=== PATIENT | male | born 1950 | race Caucasian/White ===

== ENCOUNTER 2023-08-15 13:32 | Outpatient (AMB) | payer MEDICARE, OTHER, SELFPAY ==
--- NOTE | 2023-08-15 13:33 | A.OFFVIS_ITS ---
Intake Visit Reasons: Elevated PSA Intake Note: NEW Patient presents today to established treatment for Elevated PSA: Meds- None Allergies to Antibiotic- No Known Allergies Blood Thinner- None Quarrying Manager Required: No Accompanied by: Self / Same As Patient Allergies No Known Allergies Allergy (Verified 08/15/23 13:53) Medication List - Last Reconciled 08/15/23 by Randa Vences MD hydrochlorothiazide 25 mg PO DAILY lisinopril 40 mg PO DAILY rosuvastatin 40 mg PO DAILY HPI Comments Details: Bang is a 72-year-old male who is here for evaluation due to elevated PSA and bilateral testicular hydroceles. He states he was followed by urologist up until about 5 years ago for elevated PSA. About 15 years ago he had a prostate biopsy done because his PSA went up to 7. He has had annual checks with the urologist until the urologist moved approximately 5 years ago and his PSAs have been in the 4 range. He denies any urinary symptoms. Nocturia x1. AUA symptom score 2/35. Examination: Scrotum-no significant swelling right desean scrotum mildly enlarged, nontender. KENIA-prostate moderately enlarged smooth. 06/10/2023 PSA--4.71. Discussed options regarding aspiration of hydrocele fluid, surgical excision of fluid and hydrocele membrane, observation. He is currently asymptomatic. Plan is follow-up in 1 year with PSA screening he will call to be seen sooner for bothersome symptoms. [facility] Medical History Elevated prostate specific antigen [PSA] HTN (hypertension) Surgical History Hx of prostate biopsy Hx of tooth extraction Hx of colonoscopy History of bilateral inguinal herniorrhaphies Social History Alcohol intake: current Alcohol intake frequency: does not drink Patient Tobacco Use Status: Former Tobacco user Review of Systems Const All systems reviewed & are unremarkable except as noted in HPI and below Reports no additional complaints Eyes Reports no additional complaints ENT Reports no additional complaints Card Reports no additional complaints Resp Reports no additional complaints GI Reports no additional complaints Reports as per HPI Musc Reports no additional complaints Skin/Breast Reports system reviewed and no additional complaints, except as documented Neuro Reports no additional complaints Psych Reports no additional complaints Endo Reports no additional complaints Tito/Lymph Reports no additional complaints Aller/Immun Reports no additional complaints Physical Exam Const General: healthy appearing, no acute distress and well developed Orientation/consciousness: patient oriented x3 HEENT Head: Yes normocephalic and Yes atraumatic Eyes Conjunctivae: conjunctivae normal Neck Neck: Yes normal visual inspection Chest Chest palpation & inspection: normal inspection of the chest Resp Effort & Inspection: normal respiratory effort Cardio Rate: regular rate GI Inspection: Yes normal to inspection Palpation (GI): Soft to palpation Other: Prostate Exam: Moderately enlarged, smooth Testes, bilateral nontender Penis: normal penis Skin General skin exam: no rashes or lesions noted Neuro General: patient oriented x3 Extrem General: No pedal edema Psych Appearance: grossly normal Affect: normal affect Results AMB Urinalysis, Automated UA Leukoctes 0 Michela/uL Last Edit by DM Guzman on 08/15/23 13:55 UA Nitrite Negative Last Edit by DM Guzman on 08/15/23 13:55 UA Urobilinogen 0.2 mg/dL Last Edit by DM Guzman on 08/15/23 13:5 5 UA Protein 0 mg/dL Last Edit by DM Guzman on 08/15/23 13:55 UA pH 7.0 Last Edit by DM Guzman on 08/15/23 13:55 UA Blood 0 René/uL Last Edit by DM Guzman on 08/15/23 13:55 UA Specific [place] 1.010 Last Edit by DM Guzman on 08/15/23 13: 55 UA Ketone Negative Last Edit by DM Guzman on 08/15/23 13:55 UA Bilirubin 0 mg/dL Last Edit by DM Guzman on 08/15/23 13:55 UA Glucose 0 mg/dL Last Edit by DM Guzman on 08/15/23 13:55 Quality Reporting (2019) Benign Prostatic Hyperplasia ([facility] 771) AUA symptom score: 2 Results Reviewed Results Reviewed: Laboratory Last Values Urine pH (Auto) 7.0 08/15/23 13:53 Specific [place] (Auto) 1.010 08/15/23 13:53 Urine Protein (Auto) 0 mg/dL 08/15/23 13:53 Glucose (UA)(Auto) 0 mg/dL 08/15/23 13:53 Urine Ketones (Auto) Negative 08/15/23 13:53 Urine Blood (Auto) 0 René/uL 08/15/23 13:53 Urine Nitrite (Auto) Negative 08/15/23 13:53 Urine Bilirubin (Auto) 0 mg/dL 08/15/23 13:53 Urine Urobilinogen (Auto) 0.2 mg/dL 08/15/23 13:53 Leukocyte Esterase (Auto) 0 Michela/uL 08/15/23 13:53 Ultrasound scrotum-06/21/2023 Report reviewed no intratesticular mass visualized in either the right or left testicle. No evidence of torsion or acute abnormality. Bilateral hydroceles right hydrocele with septations greater than left. PSA 06/10/2023--4.71 ng/mL Assessment & Plan Assessment & Plan (1) Bilateral hydrocele: Code(s): N43.3 - Hydrocele, unspecified Category: Medical (2) BPH with elevated PSA: Code(s): N40.0 - Benign prostatic hyperplasia without lower urinary tract symptoms; R97.20 - Elevated prostate specific antigen [PSA] Category: Medical (3) Screening PSA (prostate specific antigen): Code(s): Z12.5 - Encounter for screening for malignant neoplasm of prostate Category: Medical Plan follow-up in 1 year with PSA screening he will call to be seen sooner for bothersome symptoms. Orders: Orders AMB Urinalysis Automated 08/15/23 Z13.9 - Encounter for screening, unspecified PSA,Total (Free>4and<10) 10 Months N40.0 - Benign prostatic hyperplasia without lower urinary tract symptoms, R97.20 - Elevated prostate specific antigen [PSA], Z12.5 - Encounter for screening for malignant neoplasm of prostate Patient Instructions: The patient had an opportunity to ask questions regarding treatment plan. The patient expressed understanding and agreement with the above treatment plan. The patient is aware they should contact our office by phone for worsening of their current condition or the appearance of new symptoms. Compliance is encouraged with any medications and followup testing that is ordered. It is a privilege to be allowed the opportunity to participate in the urologic care of your patient. If you have any questions or concerns regarding treatment for the above conditions please do not hesitate to contact me. The office telephone contact is [phone]. This note is constructed in part using voice recognition software. While every effort has been made to ensure accuracy cigar maker errors may have been included. Yours sincerely, Randa Vences MD Coding Level of Care Code New Pt Level 4 (21334) Diagnoses Bilateral hydrocele N43.3 BPH with elevated PSA N40.0; R97.20 Screening PSA (prostate specific antigen) Z12.5 AUA Symptom Score AUA Incomplete emptying - It does not feel like I empty my bladder all the way.: 0 - Not at all Frequency - I have to go again less than two hours after I finish urinating.: 0 - Not at all Intermittency - I stop and start again several times when I urinate.: 0 - Not at all Urgency - It is hard to wait when I have to urinate.: 1 - Less than 1 time in 5 Weak stream - I have a weak urinary stream.: 0 - Not at all Straining - I have to push or strain to begin urination.: 0 - Not at all Nocturia - I get up to urinate after I go to bed until the time I get up in the morning.: 1 time AUA Symptom Score: 2 Source: Long MEJIA, Raghu PRITCHETT Jr, O'Francitas MP, et al, and the Measurement Committee of the [employer]. The [place] [employer] symptom index for benign prostatic hyperplasia. J Urol. 1992; 148: 9872-9843. Copyright 1992 [employer]
== END 2023-08-15 14:23 | disposition home or self-care (01) ==
PROVIDERS: Visit Provider Urology
DX: N43.3 Hydrocele, unspecified (principal); N40.0 Benign prostatic hyperplasia without lower urinary tract symptoms; R97.20 Elevated prostate specific antigen [PSA]; Z12.5 Encounter for screening for malignant neoplasm of prostate
CPT/HCPCS: 99204

== ENCOUNTER → 2023-08-15 13:32 | Outpatient (BNVA) | payer MEDICARE, OTHER, SELFPAY | PROVIDERS: Visit Provider Urology | DX: Z12.5 Encounter for screening for malignant neoplasm of prostate (principal); N43.3 Hydrocele, unspecified; N40.0 Benign prostatic hyperplasia without lower urinary tract symptoms; R97.20 Elevated prostate specific antigen [PSA] | CPT/HCPCS: 81003; 99202 ==

== ENCOUNTER 2024-07-21 09:54 | Outpatient (REF) | payer MEDICARE, OTHER, SELFPAY ==
--- OUTSIDE RECORDS SUMMARY | 2024-07-21 11:10 | XMS_ITS | Encounter Summary ---
Author Organization [facility] Address [address] [place] [address] Phone Care Team Providers Care Costume Designer Name Role Phone Pcp, Unknown Primary Care Provider Reid Elaine MD Primary Care Provider [phone]- [phone] Encounter Details Date Type Department Care Team (Late st Contact Info) Description 08/05/2022 Procedure Pass [facility], Ct Scan - [address] [address] Social History Tobacco Use Types Packs/Day Years Used Date Smoking Tobacco: Former Cigarettes Smokeless Tobacco: Never Alcohol Use Standard Drinks/Week Comments Yes 14 (1 standard drink = 0.6 oz pu re alcohol) daily Education Answer Date Recorded Are you interested in more education? Not on dileep e 07/13/2022 Are you concerned about learning? Not on file 07/13/2022 No 07/13/2022 No 07/13/2022 Digital Access Answer Date Recorded No 08/07/2022 No 08/07/2022 No 08/07/2022 Reliable internet access at home? Not on file 08/07/2022 Device with a working camera? Not on file Intimate Partner Violence Answer Date R ecorded Are you denied basic needs s uch as food, clothing, or medical care? No 08/05/2022 In the past 12 months have y ou been in a relationship with a person who hurts, threatens, or tries to control you? No 08/05/2022 Are you denied basic needs s uch as food, clothing, or medical care? No 08/05/2022 In the past 12 months have y ou been in a relationship with a person who hurts, threatens, or tries to control you? No 08/05/2022 Sex and Gender Information Value Date Recorded Sex Assigned at Not on file Gender Identity Not on file Sexual Orientation Not on file documented as of this encounter Plan of Treatment Not on file documented as of this encounter Visit Diagnoses Not on filedocumented in this encounter Care Teams Costume Designer Relationship Specialty Start Date End Date Pcp, Unknown PCP - General 08/05/22 08/05/22 Reid Rodriguez MD [address] [place] [phone] [email or web address] PCP - General Internal Medicine 08/06/22 documented as of this encounter Additional Source Comments The information contained in this document represents components of the legal health record. It is not the complete legal health record.[facility]
--- OUTSIDE RECORDS SUMMARY | 2024-07-21 11:10 | XMS_ITS | Encounter Summary ---
Author Organization [facility] Address [address] [place] [address] Phone Care Team Providers Care Hat Braider Name Role Phone Pcp, Unknown Primary Care Provider Reid Elaine MD Primary Care Provider [phone]- [phone] Encounter Details Date Type Department Care Team (Late st Contact Info) Description 08/05/2022 Procedure Pass [facility], Ct Scan - [address] [address] Social History Tobacco Use Types Packs/Day Years [...] on filedocumented in this encounter Care Teams Hat Braider Relationship Specialty Start Date End Date Pcp, Unknown PCP - General 08/05/22 08/05/22 Reid Rodriguez MD [address] [place] [phone] [email or web address] PCP - General Internal Medicine 08/06/22 documented as of this encounter Additional Source Comments The information contained in this document represents components of the legal health record. It is not the complete legal health record.[facility]
--- OUTSIDE RECORDS SUMMARY | 2024-07-21 11:10 | XMS_ITS | Encounter Summary ---
Author Organization [facility] Address [address] [place] [address] Phone Care Team Providers Care Retail Sales Vitamin Consultant Name Role Phone Reid Rodriguez MD Primary Care Provider [phone]- [phone] Encounter Details Date Type Department Care Team (Late st Contact Info) Description 08/06/2022 Procedure Pass [facility] [address] [place] [address] Social History Tobacco Use Types Packs/Day Years [...] on filedocumented in this encounter Care Teams Retail Sales Vitamin Consultant Relationship Specialty Start Date End Date Reid Rodriguez MD [address] [place], [place] [id number] [email or web address] PCP - General Internal Medicine 08/06/22 documented as of this encounter Additional Source Comments The information contained in this document represents components of the legal health record. It is not the complete legal health record.[facility]
--- OUTSIDE RECORDS SUMMARY | 2024-07-21 11:10 | XMS_ITS | Encounter Summary ---
Author Organization [facility] Address [address] [place] [address] Phone Care Team Providers Care Book Author Name Role Phone Pcp, Unknown Primary Care Provider Reid Elaine MD Primary Care Provider [phone]- [phone] Encounter Details Date Type Department Care Team (Late st Contact Info) Description 08/05/2022 Procedure Pass [facility], [address] [address] Social History Tobacco Use Types Packs/Day Years [...] on filedocumented in this encounter Care Teams Book Author Relationship Specialty Start Date End Date Pcp, Unknown PCP - General 08/05/22 08/05/22 Reid Rodriguez MD [address] [place] [phone] [email or web address] PCP - General Internal Medicine 08/06/22 documented as of this encounter Additional Source Comments The information contained in this document represents components of the legal health record. It is not the complete legal health record.[facility]
--- OUTSIDE RECORDS SUMMARY | 2024-07-21 11:10 | XMS_ITS | Data Portability ---
Author Organization [facility], [facility] Address [address] [place] [address] Care Team Providers Care Pan Helper Name Role Phone GIFTY RODRIGUEZ Primary Care Provider [phone] JON ESCALANTE Cask Maker Assessment Encounter Date Assessment Date Assessment LastModified by Organization Details LastModified Time 11/16/2022 11/16/2022 We completed your Medicare Wellness exam today. This was an opportunity to assess your overall well being including your ability to care for yourself, your mobility, memory, mental health, as well as your safety. With advancing age, it is important to assign someone in your life as your Health Care Proxy (HCP). This person should know what is important to you and what your wishes are for medical procedures if you cannot communicate your wishes yourself (severe illness, unconsciousness) . Influenza Vaccine : Flu shot yearly. Tetanus Vaccine : Every 10 years. The following vaccines are available from your pharmacy: Pneumonia Vaccine : PCV20: once after age 65. Shingles Vaccine : 2 shots after age 50. Covid Vaccine : Make sure you have received the most up to date covid vaccine. 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 * outrigger [place] in [place] 10/2020 well enjoy [place] [employer] * 05/04/2020 had repair of retinal tear last week with Heladio Mullins 10/27/2019 former [facility] patient, first meet with RV had root canal yesterday and on amoxicillin Home BP 131/84 WT [address] 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 This was an opportunity to assess your overall well being including your ability to care for yourself, your mobility, memory, mental health, as well as your safety. With advancing age, it is important to assign someone in your life as your Health Care Proxy (HCP). This person should know what is important to you and what your wishes are for medical procedures if you cannot communicate your wishes yourself (severe illness, unconsciousness) . Influenza Vaccine : Flu shot yearly. Tetanus Vaccine : Every 10 years. 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 * out[place] in [place] 10/2020 well enjoy [facility]- * 05/04/2020 had repair of retinal tear last week with Heladio Mullins 10/27/2019 former [facility] patient, first meet with RV had root canal yesterday and on amoxicillin Home BP 131/84 WT [address] 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 Please review instructions below. We have discussed your personal goals and discussed how to reach your goals. Please reach out to us via the Portal or phone if you have questions about your chronic conditions or if you or your caregivers require assistance in meeting your goals. Please visit our website [email or web address] for more patient resources. As part of your care plan, we will help coordinate your ongoing medical needs, arrange for durable medical equipment, renew prescriptions and necessary prior authorizations, facilitate getting referrals and collaborating with specialist, referrals for VNA services. [email or web address] Not available 06/29/2024 08:25:40 Plan of Treatment Reminders Order Date Submit Date Provider Last Modified By Organization Details Last Modified Time Details Appointments LAB Follow -Up 2024 07:30A M [facility] Not available Not available Not available Wellne ss Visit 30 2024 08:30A M Gifty Rodriguez MD Not available Not available Not available Lab PSA, serum or plasma 2024 025 [facility], [address] [facility], [place], [address], 06/29/2024 08:45:55 Referral None record ed. Procedures holter monito r placem ent (PROC) - TIA observ ed overni ght at [facility] 08/05-04/2022 . 30 day r.o afib 2022 023 [facility], [address], [place], [address], 12/21/2022 10:41:23 Surgeries None record ed. Imaging US, scrotu m [address] [facility] (Imaging), [address] , [place], [address], 06/21/2023 09:42:15 Medication Orders hydroc hlorot hiazid e 25 mg tablet 2022 023 [facility], [facility], [place], [address], 11/16/2022 11:55:42 lisino pril 40 mg tablet 2022 023 [facility], [place], [address], 11/16/2022 11:55:42 clopid ogrel 75 mg tablet 2022 023 [email or web address] [facility], [facility], [place], [address], 11/16/2022 11:17:01 atorva statin 80 mg tablet 2022 023 [email or web address] [facility], [facility], [place], [address], 11/16/2022 11:16:58 Patient TargetsNo targets recorded. Patient Instructions Encounter Date Encounter Id Patient Instructions Last Modified By Organization Details Last Modified Time 08/20/2022 [id number] I am aware of e inpatient facility discharge medications, the medication list above has been reconciled with those medications and reflects my understanding of an up to date medication list for this patient. [email or web address] Not available 08/20/2022 09:43:00 11/16/2022 [id number] high blood pressure: care instructions rvigderman Not available 11/16/2022 11:55:40 learning about high blood pressure rvigderman Not available 11/16/2022 11:55:40 preventing falls : care instructions rvigderman Not available 11/16/2022 11:55:40 hearing loss information rvigderman Not available 11/16/2022 11:55:40 advance directives: care instructions rvigderman Not available 11/16/2022 11:55:40 well visit, over 65: care instructions rvigderman Not available 11/16/2022 11:55:40 Prostate Cancer Screening was discussed. The U.S. Preventive Services Task Force advises not to make a PSA test a part of the standard exam for men ages 55-69. Instead they recommend the uncertainties about the test be discussed and ordered only if a patient still wants it. Over their lifetimes as many as 50% or more of men will develop prostate cancer but only 2% of men will of prostate cancer. For men who chose to be screened for prostate cancer if 1000 men are screened with a psa test over a 15 year period there might be 1-2 deaths prevented however 235 men will have a biopsy with risk of infection, bleeding and Pain, 100 men will have their prostate removed by surgery or radiation treatments and 60-70 of those will suffer incontinence or impotence. There is also the risk of anesthesia or radiation complications. For men over 70 prostate cancer screening offered no benefit and risked pain, worry, expense and possibly shorter life expectancy. [email or web address] Not available 11/16/2022 11:12:10 11/25/2023 [id number] preventing falls : care instructions [email or web address] Not available 11/25/2023 09:24:08 hearing loss information rvigderman Not available 11/25/2023 09:24:08 advance directives: care instructions rvigderman Not available 11/25/2023 09:24:08 well visit, over 65: care instructions rvigderman Not available 11/25/2023 09:24:08 CCM: The provide r and patient discussed the Chronic Care Management program, including the services provided, and any fees associated with them. Not available 11/25/2023 08:45:15 06/29/2024 [id number] high blood pressure: care instructions [email or web address] Not available 06/29/2024 08:45:55 learning about [facility] blood [facility] Not available 06/29/2024 08:45:55 Reason for Referral None Reported. Results Created Date Observation Date Name Description Value Unit Range Abnormal Flag Note LastModifiedBy Organization Detail LastModifiedTime 11/08/1911/07/2022 PSA PSA 4.74 NG/mL 0.00-4 .00 high Not Available [address], [address], 11/07/2022 12:16:32 11/08/1911/07/2022 LIPID PANEL cholesterol 135 mg/dL <200 mg/dl Tung able 200-2 39 mg/dl Borde rline High >240 mg/dl High Not Available [address], [address], 11/07/2022 16:23:00 11/08/1911/07/2022 LIPID PANEL triglyceride s 117 mg/dL <150 mg/dL Heather l 150-1 99 mg/dL Borde rline High 200-4 99 mg/dL High >500 mg/dL Very High Not Available [address], [address], 11/07/2022 16:23:00 11/08/1911/07/2022 LIPID PANEL direct HDL 58 mg/dL <40 mg/dl - Major Risk for CHD >60 mg/dl - Negat denzel Risk for CHD Not Available [address], [address], 11/07/2022 16:23:00 11/08/19 23 11/07/2022 ALT ALT 56 U/L 6-63 Not Available [address], [address], 11/07/2022 16:23:01 11/08/1911/07/2022 LDL - CALCU LATED LDL - calculated 53.6 RISK CATEG ORY LDL GOAL _ CHD or CHD Risk Equiv alent s <100 mg/dl (10-y ear risk >20%) 2+ Risk Facto rs <130 mg/dl (10-y ear risk <= 20%) 0-1 Risk Facto r? <160 mg/dl ? Almos t all peopl e with 0-1 risk facto r have a 10 year risk <10%, thus 10 year risk asses ment in peopl e with 0-1 risk facto r is not neces estefani. Not Available [address], [address], 11/07/2022 16:23:02 12/18/19 23 12/18/2022 ANATO NESTOR PATHO LOGY path report [facility] [address] [place] [address] Lab Direc tor: Regina jose MD Surgi elmira Patho logy Repor t Acces osvaldo #: [id number] FINAL PATHO LOGIC DIAGN OSIS: A. COLON POLYP AT HEPAT IC FLEXU RE: Adeno matou s polyp . B. SIGMO ID COLON , POLYP : Hyper plast ic polyp . Rosaura issaon pankaj joseph Lenore d Out By Mandeep frias MD By his/h er signayan laureano above , the patho logis t gifty d as stef junior the Final Diagn osis certi fies that he/sh e has perso fazal revie wed this case and confi rmed or fanny cerond the diagn osis. [facility] RY Scree marcell colon oscop y, last colon oscop y 6 SPECI MENS SUBMI TTED: A: COLON AT HEPAT IC FLEXU RE, POLYP B: SIGMO ID COLON , POLYP GROSS DESCR IPTIO N A. COLON AT HEPAT IC FLEXU RE, POLYP : Forma roseline: 2 fragm ents 0.2 cm each, entir shivam submi tted A1. B. SIGMO ID COLON , POLYP : Forma roseline: 1 fragm ent 0.2 cm, entir shivam submi tted B1. DN 2022 Gross ing Staff : MAHI patel Name: VICKY PAIZ AM : 1950 (Age: 72) Sex: M 1 Insti tutio n: [facility] Locat ion: [facility] Date of Opera tion: 2022 Date of Acces osvaldo: 2022 Repor mamadou: 2022 15:04 Resul ts To: Nader lenz MD, AB Traivs brush MD, POST- BA, BA [facility] Speci altie s Not Available [facility] (Outpatient) [address] [place] [address], [address], 12/18/2022 15:38:59 06/10/19 24 06/10/2023 BASIC METAB OLIC PANEL glucose 91 mg/dL 70-100 Not Available [address], [address], 06/10/2023 11:08:19 06/10/19 24 06/10/2023 BASIC METAB OLIC PANEL BUN 15 mg/dL 7-18 Not Available [address], [address], 06/10/2023 11:08:19 06/10/19 24 06/10/2023 BASIC METAB OLIC PANEL creatinine 1.0 mg/dL 0.8-1. 3 Not Available [address], [address], 06/10/2023 11:08:19 06/10/19 24 06/10/2023 BASIC METAB OLIC PANEL B/C 15.0 ratio Not Available [address], [address], 06/10/2023 11:08:19 06/10/19 24 06/10/2023 BASIC METAB OLIC PANEL GFR >=60ML /MIN mL/mi n normal >=60m L/min - Heather l or midly reduc ed <60mL /min- Decre ased kidne y funct ion <15mL /min - Kidne y failu re [facility] calcu lates estim ated Glome rular Filtr ation Rate (eGFR ) using the Chron ic Kidne y Disea se Epide miolo gy Colla borat ion (CKD- EPI) Equat ion (Paramjit durham et. al 2020) as recom vance d by the Natio nal Kidne y Found ation . eGFR is based on age, serum creat inine , and sex. CKD-E PI does not calcu late eGFR by race, does not apply to child neftali (age <18 years ), and shoul d not be used in pregn julian. Not Available [address], [address], 06/10/2023 11:08:19 06/10/19 24 06/10/2023 BASIC METAB OLIC PANEL sodium 143 mmol/ L 136-14 5 Not Available [address], [address], 06/10/2023 11:08:19 06/10/19 24 06/10/2023 BASIC METAB OLIC PANEL potassium 4.8 mmol/ L 3.5-5. 1 Not Available [address], [address], 06/10/2023 11:08:19 06/10/19 24 06/10/2023 BASIC METAB OLIC PANEL chloride 105 mmol/ L 96-107 Not Available [address], [address], 06/10/2023 11:08:19 06/10/19 24 06/10/2023 BASIC METAB OLIC PANEL anion gap 8.1 5.0-15 .0 Not Available [address], [address], 06/10/2023 11:08:19 06/10/19 24 06/10/2023 BASIC METAB OLIC PANEL CO2 30 mmol/ L 21-32 Not Available [address], [address], 06/10/2023 11:08:19 06/10/19 24 06/10/2023 BASIC METAB OLIC PANEL calcium 9.3 mg/dL 8.5-10 .3 Not Available [address], [address], 06/10/2023 11:08:19 06/10/19 24 06/10/2023 LIPID PANEL cholesterol 129 mg/dL <200 mg/dl Tung able 200-2 39 mg/dl Borde rline High >240 mg/dl High Not Available [address], [address], 06/10/2023 11:08:20 06/10/19 24 06/10/2023 LIPID PANEL triglyceride s 54 mg/dL <150 mg/dL Heather l 150-1 99 mg/dL Borde rline High 200-4 99 mg/dL High >500 mg/dL Very High Not Available [address], [address], 06/10/2023 11:08:20 06/10/19 24 06/10/2023 LIPID PANEL direct HDL 66 mg/dL <40 mg/dl - Major Risk for CHD >60 mg/dl - Negat denzel Risk for CHD Not Available [address], [address], 06/10/2023 11:08:20 06/10/19 24 06/10/2023 LDL - CALCU LATED LDL - calculated 52.2 RISK CATEG ORY LDL GOAL _ CHD or CHD Risk Equiv alent s <100 mg/dl (10-y ear risk >20%) 2+ Risk Facto rs <130 mg/dl (10-y ear risk <= 20%) 0-1 Risk Facto r? <160 mg/dl ? Almos t all peopl e with 0-1 risk facto r have a 10 year risk <10%, thus 10 year risk asses ment in peopl e with 0-1 risk facto r is not terry jara. Not Available [address], [address], 06/10/2023 11:08:21 06/10/19 24 06/10/2023 PSA PSA 4.71 NG/mL 0.00-4 .00 high Not Available [address], [address], 06/10/2023 15:30:37 11/11/19 24 11/11/2023 BASIC METAB OLIC PANEL glucose 83 mg/dL 70-100 Not Available [address], [address], 11/11/2023 14:14:54 11/11/19 24 11/11/2023 BASIC METAB OLIC PANEL BUN 11 mg/dL 7-18 Not Available [address], [address], 11/11/2023 14:14:54 11/11/19 24 11/11/2023 BASIC METAB OLIC PANEL creatinine 0.9 mg/dL 0.8-1. 3 Not Available [address], [address], 11/11/2023 14:14:54 11/11/19 11/11/2023 BASIC METAB OLIC PANEL B/C 12.2 ratio Not Available [address], [address], 11/11/2023 14:14:54 11/11/19 24 11/11/2023 BASIC METAB OLIC PANEL GFR >=60ML /MIN mL/mi n normal >=60m L/min - Heather l or midly reduc ed <60mL /min- Decre ased kidne y funct ion <15mL /min - Kidne y failu re [facility] calcu lates estim ated Glome rular Filtr ation Rate (eGFR ) using the Chron ic Kidne y Disea se Epide miolo gy Colla borat ion (CKD- EPI) Equat ion (Paramjit durham et. al 2020) as recom vance d by the Natio nal Kidne y Found ation . eGFR is based on age, serum creat inine , and sex. CKD-E PI does not calcu late eGFR by race, does not apply to child neftali (age <18 years ), and shoul d not be used in pregn julian. Not Available [address], [address], 11/11/2023 14:14:54 11/11/1911/11/2023 BASIC METAB OLIC PANEL sodium 140 mmol/ L 136-14 5 Not Available [address], [address], 11/11/2023 14:14:54 11/11/1911/11/2023 BASIC METAB OLIC PANEL potassium 4.2 mmol/ L 3.5-5. 1 Not Available [address], [address], 11/11/2023 14:14:54 11/11/19 24 11/11/2023 BASIC METAB OLIC PANEL chloride 103 mmol/ L 96-107 Not Available [address], [address], 11/11/2023 14:14:54 11/11/19 24 11/11/2023 BASIC METAB OLIC PANEL anion gap 11.0 5.0-15 .0 Not Available [address], [address], 11/11/2023 14:14:54 11/11/19 24 11/11/2023 BASIC METAB OLIC PANEL CO2 26 mmol/ L 21-32 Not Available [address], [address], 11/11/2023 14:14:54 11/11/19 24 11/11/2023 BASIC METAB OLIC PANEL calcium 9.1 mg/dL 8.5-10 .3 Not Available [address], [address], 11/11/2023 14:14:54 11/11/19 24 11/11/2023 LIPID PANEL cholesterol 123 mg/dL <200 mg/dl Tung able 200-2 39 mg/dl Borde rline High >240 mg/dl High Not Available [address], [address], 11/11/2023 14:14:55 11/11/19 24 11/11/2023 LIPID PANEL triglyceride s 113 mg/dL <150 mg/dL Heather l 150-1 99 mg/dL Borde rline High 200-4 99 mg/dL High >500 mg/dL Very High Not Available [address], [address], 11/11/2023 14:14:55 11/11/1911/11/2023 LIPID PANEL direct HDL 58 mg/dL <40 mg/dl - Major Risk for CHD >60 mg/dl - Negat denzel Risk for CHD Not Available [address], [address], 11/11/2023 14:14:55 11/11/19 24 11/11/2023 LDL - CALCU LATED LDL - calculated 42 RISK CATEG ORY LDL GOAL _ CHD or CHD Risk Equiv alent s <100 mg/dl (10-y ear risk >20%) 2+ Risk Facto rs <130 mg/dl (10-y ear risk <= 20%) 0-1 Risk Facto r? <160 mg/dl ? Almos t all peopl e with 0-1 risk facto r have a 10 year risk <10%, thus 10 year risk asses ment in peopl e with 0-1 risk facto r is not terry jara. Not Available [address], [address], 11/11/2023 14:14:55 06/24/19 25 06/23/2024 BASIC METAB OLIC PANEL glucose 85 mg/dL 70-100 Not Available [address], [address], 06/23/2024 15:19:08 06/24/19 25 06/23/2024 BASIC METAB OLIC PANEL BUN 14 mg/dL 7-18 Not Available [address], [address], 06/23/2024 15:19:08 06/24/19 25 06/23/2024 BASIC METAB OLIC PANEL creatinine 1.0 mg/dL 0.8-1. 3 Not Available [address], [address], 06/23/2024 15:19:08 06/24/19 25 06/23/2024 BASIC METAB OLIC PANEL B/C 14.0 ratio Not Available [address], [address], 06/23/2024 15:19:08 06/24/19 25 06/23/2024 BASIC METAB OLIC PANEL GFR >=60ML /MIN mL/mi n normal >=60m L/min - Heather l or midly reduc ed <60mL /min- Decre ased kidne y funct ion <15mL /min - Kidne y failu re [facility] calcu lates estim ated Glome rular Filtr ation Rate (eGFR ) using the Chron ic Kidne y Disea se Epide miolo gy Colla borat ion (CKD- EPI) Equat ion (Paramjit durham et. al 2020) as recom vance d by the Natio nal Kidne y Found ation . eGFR is based on age, serum creat inine , and sex. CKD-E PI does not calcu late eGFR by race, does not apply to child neftali (age <18 years ), and shoul d not be used in pregn julian. Not Available [address], [address], 06/23/2024 15:19:08 06/24/19 25 06/23/2024 BASIC METAB OLIC PANEL sodium 144 mmol/ L 136-14 5 Not Available [address], [address], 06/23/2024 15:19:08 06/24/19 25 06/23/2024 BASIC METAB OLIC PANEL potassium 4.5 mmol/ L 3.5-5. 1 Not Available [address], [address], 06/23/2024 15:19:08 06/24/19 25 06/23/2024 BASIC METAB OLIC PANEL chloride 106 mmol/ L 96-107 Not Available [address], [address], 06/23/2024 15:19:08 06/24/19 25 06/23/2024 BASIC METAB OLIC PANEL anion gap 12.5 5.0-15 .0 Not Available [address], [address], 06/23/2024 15:19:08 06/24/19 25 06/23/2024 BASIC METAB OLIC PANEL CO2 26 mmol/ L 21-32 Not Available [address], [address], 06/23/2024 15:19:08 06/24/19 25 06/23/2024 BASIC METAB OLIC PANEL calcium 9.6 mg/dL 8.5-10 .3 Not Available [address], [address], 06/23/2024 15:19:08 06/24/19 25 06/23/2024 LIPID PANEL cholesterol 138 mg/dL <200 mg/dl Tung able 200-2 39 mg/dl Borde rline High >240 mg/dl High Not Available [address], [address], 06/23/2024 15:19:09 06/24/19 25 06/23/2024 LIPID PANEL triglyceride s 124 mg/dL <150 mg/dL Heather l 150-1 99 mg/dL Borde rline High 200-4 99 mg/dL High >500 mg/dL Very High Not Available [address], [address], 06/23/2024 15:19:09 06/24/19 25 06/23/2024 LIPID PANEL direct HDL 71 mg/dL <40 mg/dl - Major Risk for CHD >60 mg/dl - Negat denzel Risk for CHD Not Available [address], [address], 06/23/2024 15:19:09 06/24/19 25 06/23/2024 LDL - CALCU LATED LDL - calculated 42 RISK CATEG ORY LDL GOAL _ CHD or CHD Risk Equiv alent s <100 mg/dl (10-y ear risk >20%) 2+ Risk Facto rs <130 mg/dl (10-y ear risk <= 20%) 0-1 Risk Facto r? <160 mg/dl ? Almos t all peopl e with 0-1 risk facto r have a 10 year risk <10%, thus 10 year risk asses ment in peopl e with 0-1 risk facto r is not neces estefani. Not Available [facility] [address] [facility], [place], [address], 06/23/2024 15:19:10 12/22/19 23 09/03/2022 rianna r monit or place ment (PROC ) No observ ation record ed. [facility] [address], [place], [address], 12/21/2022 15:17:49 06/21/19 24 06/21/2023 US, scrot um CLINIC AL HISTOR Y: Acute orchit is TECHNI QUE: The scrotu m is evalua mamadou with 2d sonogr aphy includ ing color and spectr al Dopple r of the arteri es and veins of the testic les. COMPAR TOM: None. FINDIN GS: RIGHT TESTIC LE: 3.3 x 2.7 x 5.1 cm No intrat esticu lar mass is visual ized. Vascul ar flow to the testic le is normal . There appear s to be cystic change of the epidid ymis. It is unclea r how much of this is separa te from cystic change of the adjace nt hydroc rosaura. There is a large right hydroc rosaura with septat ions. LEFT TESTIC LE: 3.1 x 3.0 x 4.6 cm No intrat esticu lar mass is visual ized. Vascul ar flow to the testic le is normal . The epidid ymis is unrema rkable . There appear s to be cystic change of the epidid ymis. It is unclea r how much of this is separa te from cystic change of the adjace nt hydroc rosaura. There is a large left hydroc rosaura. There is no varico mark anthony. IMPRES OSVALDO: 1. No eviden ce of torsio n or other acute abnorm ality. 2. Bilate ral hydroc eles and the parent epidid ymal cysts though deline ation is diffic ult. Readin g Physic lillian: Ceci Tucker ms [facility] ([facility]) [address], [place], [address], 11/25/2023 08:55:41 Result Notes None recorded. Problems Name Problem SNOMED Code Status Onset Date Resolution Date Notes Provider Name and Address Organization Details Recorded Time Nonvenomous insect bite of multiple sites 916955066 Completed 200607/30/2011 [place], [address], [facility] 08:23:13 Essential hypertensio n 34993938 Completed 11/04/2014 [place], [address], [facility] [place] [facility] 08:23:13 On examination - a rash Completed 200207/30/2011 [place], [address], [facility] [place] [facility] 08:23:13 Subcutaneou s nodule 60297554 Completed 200707/30/2011 [place], [address], [facility] [place] [facility] 08:23:13 Pain of shoulder region 85603672 Completed 200007/30/2011 [place], [address], [facility] [place] [facility] 08:23:13 Prostate specific antigen above reference range 421012256 Active 2005 MD [place], [address], [facility] [place] [facility] 08:23:13 Elevated blood-press ure reading without diagnosis of hypertensio n 499912992 Completed 200207/30/2011 [place], [address], [facility] [place] [facility] 08:23:13 Benign essential hypertensio n 7456925 Active 2000 Asiya Kennedy [facility] 6 13:30:07 Nocturia 362763356 Completed 200507/30/2011 Zack Villegas MD [facility] [place], [address], [facility] [place] [facility] 08:23:13 Malaise and fatigue 982595251 Completed 200307/30/2011 Zack Villegas MD [facility] [place], [address], [facility] [place] [facility] 08:23:13 Benign prostatic hyperplasia 418324794 Completed 200707/30/2011 Zack Villegas MD [facility] [place], [address], [facility] [place] [facility] 08:23:13 Shoulder stiff 889333438 Completed 200007/30/2011 Zack Villegas MD [facility] [place], [address], [facility] [place] [facility] 08:23:13 Cystic fibrosis 997868245 Completed 200207/30/2011 Zack Villegas MD [facility] [place], [address], [facility] [place] [facility] 08:23:13 Mixed hyperlipide alesia 044968287 Active 2024 Gifty Rodriguez MD [facility] [place], [address], [facility] 5 08:47:20 Problem Notes None recorded. Procedures Surgical History Date Name Laterality Status Provider Name and Address Organization Details Recorded Time 11/25/19 24 Medicare Wellness Visit completed Nuris Barraza [facility] 11/25/2023 08:44:41 11/17/19 23 Medicare Wellness Visit completed Nuris Barraza [facility] 11/16/2022 11:12:11 08/21/19 23 Post hospital/SNF follow-up/Transiti onal Care completed MD Angel Bauman [facility] [place], [phone], [facility] 08/20/2022 09:43:00 11/03/19 21 Medicare Wellness Visit completed Nuris Barraza [facility] 11/02/2020 08:33:40 11/03/19 21 prevention-cardiov ascular risk reduction counseling completed Nuris Barraza [facility] 11/02/2020 08:33:40 11/03/19 21 prevention-annual alcohol misuse screening completed Nuris Barraza [facility] 11/02/2020 08:33:40 12/21/19 18 Medicare Wellness Visit completed Warren García [facility] 12/20/2017 09:32:30 12/01/19 17 Medicare Wellness Visit completed Laura Robertson LPN [facility] 11/30/2016 08:44:04 11/28/19 16 Medicare Wellness Visit completed Laura Robertson LPN [facility] 11/28/2015 11:32:15 09/23/19 16 Johnnie - Colonoscopy completed Nader Blair MD [address] [place] [address], [phone], [facility] 09/23/2015 08:32:08 09/23/19 16 Colonoscopy completed Zack Villegas MD [address] [place] [address], [phone], [facility] 09/23/2015 17:21:20 06/08/19 11 Colonoscopy completed Zack Villegas MD [address] [place] [address], [phone], [facility] 11/03/2013 08:49:51 12/22/19 09 Corticosteroid Injection completed Zack Villegas MD [address] [place] [address], [phone], [facility] 12/21/2008 08:49:42 08/11/19 09 Treatment and Advice completed Minnie Wray OT [address] [place], [phone], [facility] 08/10/2008 09:02:33 05/03/19 06 completed Not Available [facility] 02/01/2011 06:05:52 Imaging Results Imaging Date Name Status LastModified by [facility] Details LastModified Time 09/03/2022 holter monitor placement (PROC) completed [facility] [address], [place], [address], 12/21/2022 15:17:49 06/21/2023 US, [facility]um [facility] [address] , [place], [address], 11/25/2023 08:55:41 Procedure Notes None recorded. Medical Equipment None Reported. Allergies Allergen ID Allergen Name Allergen Category Reaction Reaction Severity Criticality Documentation Date Start Date Code Code System Note Provider Name and Address Organization Details Recorded Time 278335 amlodipin e medicatio n swelling mild Not available 11/25/2023 02235 RxNorm JUNE Vasquez, [place] - [facility] 08:47:02 Medications Name Sig Start Date Stop Date Status Note LastModified by Organization Details LastModified Time amoxicilli n 500 mg capsule 05/04 completed Not Available Not Available Not Available atorvastat in 80 mg tablet Take 1 tablet every day by oral route. 11/16 completed Not Available Not Available Not Available lisinopril 20 mg tablet Take 1 tablet every day by oral route. 2008 active 1 daily Not Available Not Available Not Available amlodipine 2.5 mg tablet TAKE 1 TABLET BY MOUTH EVERY DAY 06/03 completed Not Available Not Available Not Available clopidogre l 75 mg tablet Take 1 tablet every day by oral route for 7 days. 11/16 completed Not Available Not Available Not Available amlodipine 5 mg tablet Take 1 tablet every day by oral route. 11/02 completed Not Available Not Available Not Available doxycyclin e monohydrat e 100 mg tablet TAKE 1 TABLET(S) TWICE A DAY BY ORAL ROUTE FOR 28 DAYS. 11/27 completed Not Available Not Available Not Available ketorolac 0.5 % eye drops INSTILL 1 DROP IN RIGHT EYE THREE TIMES A DAY FOR 3 WEEKS FOLLOWING SURGERY 2 11/06 completed Not Available Not Available Not Available prednisolo ne acetate 1 % eye drops,susp ension INSTILL 1 DROP IN LEFT EYE THREE TIMES A DAY FOR 3 WEEKS FOLLOWING SURGERY 2 SHAKE WELL 11/06 completed Not Available Not Available Not Available amlodipine 10 mg tablet Take 1 tablet every day by oral route. 11/02 completed Not Available Not Available Not Available doxycyclin e monohydrat e 100 mg capsule Take 2 CAPSULEs for one dose 2024 active Not Available Not Available Not Avai lable aspirin 81 mg chewable tablet TAKE 1 TABLET BY MOUTH EVERY DAY active Not Available Not Available No t Available lisinopril 5 mg tablet active Take 1 tab QD ( with 20mg tab) Not Available Not Available Not Available hydrochlor othiazide 25 mg tablet TAKE 1 TABLET DAILY active Not Available Not Available No t Available lisinopril 40 mg tablet TAKE 1 TABLET DAILY active Not Available Not Available No t Available Laxative (bisacodyl ) 5 mg tablet,del ayed release TAKE 4 TABLETS ORALLY DIRECTED 1 DAY 08/20 completed Not Available Not Available Not Available rosuvastat in 20 mg tablet Take 1 tablet every day by oral route. active Not Available Not Available No t Available rosuvastat in 40 mg tablet TAKE 1 TABLET BY MOUTH EVERY DAY 11/24 completed Not Available Not Available Not Available multivitam in active 1 daily Not Available Not Available Not Available GaviLyte-G 236 gram-22.74 gram-6.74 gram-5.86 gram oral solution USE ORALLY DIRECTED 1 DAYS 08/20 completed Not Available Not Available Not Available [facility] 10 billion cell-200 mg chewable tablet Take 1 tablet twice a day by oral route for 28 days. 11/27 completed Not Available Not Available Not Available Flowflex COVID-19 Antigen Home Test kit REFER TO BRENDA STEVE ONS INCLUDED IN PACKAGING 11/06 completed Not Available Not Available Not Available Vitals Date Recorded Body height Body mass index (BMI) Body weight Systolic blood pressure Diastolic blood pressure Provider Name and Address Organization Details Last Updated DateTime 08/20/2022 183.52 cm 29.4 kg/m2 58523.14 g 138 mm[Hg] 74 mm[Hg] Nuris Barraza [facility] 3 09:00:37 Date Recorded Body height Body mass index (BMI) Body weight Heart rate Oxygen saturation Oxygen saturation in Arterial blood by Pulse oximetry Systolic blood pressure Diastolic blood pressure Provider Name and Address Organization Details Last Updated DateTime 3 183.52 cm 29.3 kg/m2 69145.3 4 g 53 /min 98 % 98 % 126 mm[Hg] 78 mm[Hg] Nuris Barraza [facility] 3 11:20:39 Date Recorded Body height Body mass index (BMI) Body weight Oxygen saturation Oxygen saturation in Arterial blood by Pulse oximetry Heart rate Systolic blood pressure Diastolic blood pressure Provider Name and Address Organization Details Last Updated DateTime 4 183.52 cm 28.9 kg/m2 93509.1 7 g 98 % 98 % 58 /min 118 mm[Hg] 74 mm[Hg] Nuris Barraza [facility] 4 12:05:31 Date Recorded Body height Body mass index (BMI) Body weight Oxygen saturation Oxygen saturation in Arterial blood by Pulse oximetry Heart rate Systolic blood pressure Diastolic blood pressure Provider Name and Address Organization Details Last Updated DateTime 4 183.52 cm 29 kg/m2 93772.4 6 g 100 % 100 % 69 /min 118 mm[Hg] 76 mm[Hg] Nuris Barraza [facility] 4 08:52:18 Date Recorded Body height Body mass index (BMI) Body weight Heart rate Oxygen saturation Oxygen saturation in Arterial blood by Pulse oximetry Systolic blood pressure Diastolic blood pressure Provider Name and Address Organization Details Last Updated DateTime 5 183.52 cm 28.8 kg/m2 53309.9 7 g 54 /min 100 % 100 % 142 mm[Hg] 84 mm[Hg] Nuris Barraza [facility] 5 08:23:07 Social History Question Answer Notes LastModified by Organizat ion Details LastModified Time Tobacco Smoking Status Former Smoker quit 47 years ago. 4 PK YRS 11/30/16- 06/04/20 laurel Arriaga, [facility] 06/03/2020 15:03:56 Do You Have An Advance Directive? Yes [email or web address] Information not available 02/01/2011 What Is Your Level Of Alcohol Consumption? Moderate 0-10 Drinks/ Week [email or web address] Information not available 11/02/2020 Do You Wear A Helmet When Biking? Yes When Biking Information not available 11/04/2014 What Is Your Level Of Caffeine Consumption? Moderate 1-2 Cups Daily [email or web address] Information not available 11/02/2020 Are You Currently Employed? No [email or web address] Information not available 11/02/2020 What Type Of Diet Are You Following? REGULAR [email or web address] Information not available 11/02/2020 Do You Or Have You Ever Used E-cigarettes Or Vape? 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 No [email or web address] Information not available 11/02/2020 Are There Any Guns Present In Your Home? No Information not available 11/04/2014 Do You Use Insect Repellent Routinely? Yes [email or web address] Information not available 11/02/2020 Live Alone Or With Others? With Others [email or web address] Information not available 02/01/2011 Patient Has Health Care Proxy Signed And In Chart Yes [email or web address] Information not available 08/08/2015 CCM Consent Discussion 11/25/2023 [email or web address] Information not available 11/26/2023 Marital Status Information not available 02/01/2011 Mosquito Repellent Used Routinely Yes Information not available 11/04/2014 What Was The Date Of Your Most Recent Tobacco Screening? 06/03/2020 06/04/20 [place] Information not available 06/03/2020 How Many Children Do You Have? 1 [email or web address] Information not available 02/01/2011 What Is Your Current Pack Years? 10packyears [email or web address] Information not available 10/04/2023 What Is Your Relationship Status? [email or web address] Information not available 11/02/2020 Do You Use Your Seat Belt Or Car Seat Routinely? Yes [email or web address] Information not available 11/02/2020 Seat Belts Used Routinely Yes [email or web address] Information not available 11/04/2014 Smoke Alarm In Home Yes Information not available 11/04/2014 Do You Have Smoke And Carbon Monoxide Detectors In Your Home? Yes [email or web address] Information not available 11/02/2020 At What Age Did You Start Smoking Tobacco? 15 [email or web address] Information not available 02/01/2011 Do You Or Have You Ever Used Smokeless Tobacco? Never Used Smokeless Tobacco 06/04/20 [place] Information not available 06/03/2020 Do You Use Any Illicit Or Recreational Drugs? No [email or web address] Information not available 11/02/2020 Do You Use Sunscreen Routinely? Yes Information not available 11/04/2014 How Many Days In The Past Year Have You Consumed 5 Or More Drinks? 0 [email or web address] Information not available 11/02/2020 Sex: Male Functional Status Question Answer Note LastModified by Organization D etails LastModified Time What is your exercise level? Moderate daily [email or web address] Information not available 11/16/2022 Mental Status None recorded. Family History Nothing Reported Notes:Ischemic: Maternal gra ndmother who had an MT. Hypertension: Maternal grandmother and father. Diabetes: Paternal grandmother. Cancer: Maternal grandfather lung, mother and father also said to have lung cancer. Colon Polyps: MOM FATHER'S GENETIC BACKGROUND [place] Medical History No medical history recorded. Immunizations Vaccine Type Date Status Note Provider Nam e and Address Organization Details Recorded Time pneumococcal polysaccharide PPV23 1 completed Not Available [facility] 04/04/2019 02:14:31 Pneumococcal conjugate PCV 13 6 completed Not Available [facility] 04/04/2019 02:36:28 Tdap 0 completed Not Available [facility] 04/04/2019 02:28:15 Td (adult), 2 Lf tetanus toxoid, preservative free, adsorbed 1 completed Nuris Barraza CMA null, [facility] 11/02/2020 08:54:28 pneumococcal polysaccharide PPV23 2 completed Gifty Rodriguez MD [address] [place] [address], [phone], [facility] 11/06/2021 15:03:09 COVID-19, mRNA, LNP-S, PF, 30 mcg/0.3 mL dose 1 completed DM Pyle null, [facility] 06/15/2020 17:31:31 COVID-19, mRNA, LNP-S, PF, 100 mcg/0.5mL dose or 50 mcg/0.25mL dose 1 completed Madonna Carvajal LPN null, [facility] 06/17/2020 14:55:03 COVID-19, mRNA, LNP-S, PF, 100 mcg/0.5mL dose or 50 mcg/0.25mL dose 1 completed Nuris Barraza CMA null, [facility] 08/07/2021 09:17:22 COVID-19, mRNA, LNP-S, PF, 100 mcg/0.5mL dose or 50 mcg/0.25mL dose 2 completed Nuris Barraza CMA null, [facility] 08/07/2021 09:17:41 zoster recombinant 2 completed Nuris Barraza CMA null, [facility] 06/29/2024 08:23:49 zoster recombinant 2 completed Nuris Barraza CMA null, [facility] 06/29/2024 08:24:05 Past Encounters Encounter ID Performer Location Encounter Start Date Encounter Closed Date Diagnosis/Indication Diagnosis SNOMED-CT Code Diagnosis ICD10 Code Diagnosis Note [id number] Zack Villegas MD , [facility] [place] [address] [place] [address] 07/16/2000 08:15:00 04/07/2008 02:02:29 [id number] Zack Villegas MD , [facility] [place] [address] [place] [address] 09/02/2000 15:30:00 04/07/2008 02:02:29 [id number] Luh Pham, PT Physical Therapy, [address] [place] [address] 09/17/2000 08:00:00 04/07/2008 02:02:29 [id number] Luh Pham, PT Physical Therapy, [address] [place] [address] 09/23/2000 13:00:00 04/07/2008 02:02:29 [id number] Luh Pham, PT Physical Therapy, [address] [place] [address] 09/25/2000 10:00:00 04/07/2008 02:02:29 [id number] Zack Villegas MD , [facility] [address] [place] [address] 02/20/2001 08:00:00 04/07/2008 02:02:29 [id number] Zack Villegas MD , [facility] [address] [place] [address] 12/08/2001 08:21:35 04/07/2008 02:02:[id number] [facility] - [address] [address] 01/28/2002 10:16:31 04/07/2008 02:02:29 [id number] [facility] - [facility] [address] [place] [address] 07/24/2002 07:59:46 04/07/2008 02:02:29 [id number] Zack Villegas MD , [facility] [address] [place] [address] 07/31/2002 11:58:11 04/07/2008 02:02:29 [id number] Zack Villegas MD , [facility] [address] [place] [address] 09/04/2002 08:12:04 04/07/2008 02:02:29 [id number] [facility] - [facility] [address] [facility] [place] [address] 09/04/2002 08:22:23 04/07/2008 02:02:29 [id number] Zack Villegas MD , [facility] [address] [place] [address] 12/11/2002 08:26:27 12/14/2002 09:24:[id number] [facility] - [address] [place] [address] 12/28/2002 09:17:48 12/28/2002 14:16:40 [id number] [facility] - [facility] [address] [place] [address] 01/01/2003 07:43:20 01/01/2003 11:14:59 [id number] Zack Villegas MD , [facility] [address] [place] [address] 01/21/2003 13:13:01 01/21/2003 18:03:57 [id number] MD TANO [place], [facility] [address] [place] [address] 12/20/2003 09:24:38 12/21/2003 08:35:34 [id number] [facility] - [address] [place] [address] 12/20/2003 10:12:47 12/20/2003 10:13:09 [id number] MD TANO [place], [facility] [address] [place] [address] 03/13/2005 08:23:42 03/14/2005 08:03:42 [id number] [facility] - [address] [place] [address] 03/22/2005 07:55:33 03/22/2005 07:55:59 [id number] ASP, LIZETH LAU MD [facility], [address] [place] [address] 05/03/2005 08:11:48 04/07/2008 02:02:29 [id number] [facility] - [address] [place] [address] 09/21/2005 06:51:18 09/21/2005 07:45:26 [id number] [facility] [address] [place] [address] 10/26/2005 08:04:11 10/26/2005 08:04:26 [id number] Zack Villegas MD , [facility]ICE [address] [place] [address] 05/24/2006 15:22:07 05/27/2006 08:24:30 [id number] [facility] - [address] [place] [address] 06/26/2006 07:47:48 06/26/2006 07:47:58 [id number] MD TANO Av[place], [facility] [address] [place] [address] 12/02/2006 08:10:58 12/03/2006 08:08:09 [id number] [facility] - [address] [place] [address] 12/04/2006 07:49:33 12/04/2006 07:49:41 [id number] Zack Villegas MD , [facility] [place]ICE [address] [place] [address] 05/26/2007 11:18:02 04/07/2008 02:02:29 [id number] [facility] - [facility] [place] [address] 06/18/2007 07:31:53 06/18/2007 07:31:57 [id number] MD TANO Avila, [facility] [address] [place] [address] 07/21/2007 08:01:37 04/07/2008 02:02:29 [id number] [facility] - [facility] [place] [address] 12/25/2007 07:26:07 12/25/2007 07:26:15 [id number] Zack Villegsa MD , [facility] [address] [place] [address] 08/05/2008 08:45:04 08/06/2008 12:25:09 [id number] [facility] [address] [facility] Radiology , [facility] [place] [address] 08/05/2008 09:56:26 08/11/2008 14:39:11 [id number] Minnie Wray, OT Physical Therapy, [facility] [place] [address] 08/10/2008 08:28:54 08/11/2008 10:21:31 [id number] Minnie Wray, OT Physical Therapy, [facility] [address] 08/18/2008 08:40:51 08/18/2008 16:25:07 [id number] Minnie Wray, OT Physical Therapy, [facility] [place] [address] 08/26/2008 08:02:32 08/26/2008 12:03:39 [id number] Minnie Wray, OT Physical Therapy, [facility] [place] [address] 08/31/2008 07:59:32 2008 09:24:19 [id number] Minnie Wray, OT Physical Therapy, [facility] [place] [address] 09/07/2008 08:03:02 09/08/2008 08:31:18 [id number] Minnie Wray, OT Physical Therapy, [address] [place] [address] 09/13/2008 15:00:04 09/14/2008 11:45:17 [id number] Minnie Wray, OT Physical Therapy, [address] [place] [address] 09/23/2008 09:01:49 09/23/2008 16:54:28 [id number] MD TANO Avila, [facility] OFFICE [address] [place] [address] [place] [address] 12/21/2008 08:11:21 12/21/2008 12:07:18 [id number] MD TANO Avila, [facility] [address] [place] [address] 01/05/2009 09:10:08 01/05/2009 15:27:01 [id number] [facility] - [address] [place] [address] 06/22/2008 07:49:56 06/22/2008 07:49:59 [id number] [facility] - [address] [place] [address] 08/18/2008 08:37:10 08/18/2008 08:37:18 [id number] Zack Villegas MD , [facility]ICE [address] [place] [address] [place] [address] 02/14/2009 07:55:07 02/14/2009 14:12:42 [id number] Zack Villegas MD , [facility] [address] [place] [address] 08/10/2009 08:26:13 08/10/2009 10:42:17 [id number] Zack Villegas MD , [facility]ICE [address] [place] [address] [place] [address] 09/09/2009 08:06:11 09/09/2009 09:26:51 [id number] Royal Juan DPM Podiatry, [address] [place] [address] 09/09/2009 08:49:24 09/09/2009 09:51:02 [id number] Royal Juan DPM Podiatry, [address] [place] [address] 10/03/2009 15:24:55 10/04/2009 14:21:38 [id number] Royal Juan DPM Podiatry, [address] [place] [address] 11/07/2009 15:27:54 11/16/2009 15:37:16 [id number] Royal Juan DPM Podiatry, [address] [place] [address] 1 11/28/2009 15:11:38 12/06/2009 15:29:08 [id number] MD TANO Avila, [facility] [address] [place] [address] [place] [address] 12/22/2009 07:59:55 12/22/2009 12:18:32 [id number] Royal Juan DPM Podiatry, [address] [place] [address] 01/23/2010 15:24:34 02/01/2010 08:44:29 [id number] Zack Villegas MD , [facility], [address] [place] [address] 10/05/2010 08:55:53 10/05/2010 15:50:37 [id number] [facility] Techn[address] Radiology , [address] [place] [address] 10/06/2010 15:51:51 10/10/2010 14:02:33 [id number] MD TANO Avila, [facility] OFFICE [address] [place] [address] [place] [address] 10/27/2010 08:08:13 10/27/2010 10:29:06 [id number] MD TANO Avila, [facility], [address] [place] [address] 07/30/2011 10:47:05 07/30/2011 11:34:30 [id number] Zack Villegas MD , [facility]ICE [address] [place] [address] [place] [address] 11/22/2011 10:57:31 11/22/2011 11:43:10 [id number] MD TANO Avila, [facility] OFFICE [address] [place] [address] [place] [address] 09/09/2012 09:13:53 09/09/2012 09:33:48 [id number] MD TANO Avila, [facility] OFFICE [address] [place] [address] [place] [address] 1 11/03/2013 08:25:08 11/04/2013 08:19:12 Benign essential hypertension [id number] Blood pressure at goal Blood pressure NOT at goal. Adult [facility] th examination [id number] see Risk Assessment and Lifestyle Change Counseling section above Counseling [id number] Prostate s pecific antigen above reference range [id number] Zack Villegas MD , [facility] [place] [address] [place] [address] 11/04/2014 09:19:47 11/04/2014 11:01:58 Adult health examination [id number] see Risk Assessment and Lifestyle Change Counseling section above Counseling [id number] Benign ess ential hypertension 8071963 Blood pressure at goal Tobacco user [id number] Zack Villegas MD , [facility] [address] [place] [address] 08/08/2015 08:10:22 08/09/2015 10:07:55 Benign essential hypertension 6501743 I10 Blood pressure at goal [id number] Blaise Hidalgo PA-C , [facility] [place] [address] [place] [address] 09/06/2015 07:48:26 09/06/2015 11:26:01 Lyme disease [id number] A69.20 With rash and these sx, will treat empiricall y. [id number] Nader [place] MD [facility], [facility] [address] [place] [address] 09/23/2015 07:30:00 09/23/2015 13:32:30 [id number] Zack Villegas MD , [facility] [place] [address] [place] [address] 11/28/2015 11:27:36 11/28/2015 12:45:48 Adult health examination [id number] Z00.00 see Risk Assessment and Lifestyle Change Counseling section above Counseling [id number] Z71 .9 Benign ess ential hypertension 3882392 I10 Blood pressure at goal Blood pressure Active or passive immunization 185133914 Z23 [id number] Zack Villegas MD , [facility] [place] [address] [place] [address] 07/09/2016 08:11:50 07/09/2016 08:43:15 Benign essential hypertension 6872192 I10 Blood pressure at goal [id number] Zack Villegas MD , [facility] [place] [address] [place] [address] 1 11/30/2016 08:36:04 11/30/2016 09:22:06 Benign essential hypertension [id number] I10 Blood pressure at goal Adult heal th examination 583029176 Z00.00 see Risk Assessment and Lifestyle Change Counseling section above Counseling 057799305 Z71 .9 [id number] Zack Villegas MD , [facility] [place] [address] [place] [address] 07/11/2017 08:10:10 07/11/2017 12:23:36 Benign essential hypertension 1421605 I10 Blood pressure at goal Blood pressure NOT at goal. [id number] Zack Villegas MD , [facility] [place] [address] [place] [address] 12/20/2017 09:30:14 12/20/2017 10:32:43 Adult health examination 971348315 Z00.00 see Risk Assessment and Lifestyle Change Counseling section above Counseling 426066010 Z71 .9 Depression screening 171 573979 Z13.89 depression screening tool administer ed, entered into emr, scored and discussed, time greater than 7.5 minutes Benign ess ential hypertension 8128403 I10 Blood pressure at goal [id number] Zack Villegas MD , [facility] [address] [place] [address] 1 07/11/2018 09:06:14 07/11/2018 12:17:36 Benign essential hypertension 0314171 I10 Blood pressure at goal [id number] Gifty Rodriguez MD , [facility] [place] [address] [place] [address] 10/27/2019 09:23:37 10/29/2019 08:51:37 Essential hypertension 10486866 I10 at goal hctz 25, lisinopril 40 both for many years Screening for malignant neoplasm of prostate 236437546 Z12.5 psa stable at 3+ wit D [place] e, last 2014option s discusseda greed to test once moreadded for fall 2019 Screening for malignant neoplasm of colon 703031182 Z12.11 HP 2011clear 2016good until 2025 per guidelines [id number] Gifty Rodriguez MD , [facility] [place] [address] [place] [address] 1 05/04/2020 08:18:32 05/06/2020 17:01:05 Essential hypertension 47392653 I10 05/04/2020 has been running 140/89 recent weeks amlodipine added at 2.5 asked to portal in BP's in 2 weeks * at goal hctz 25, lisinopril 40 both for many years Screening for malignant neoplasm of prostate 259223194 Z12.5 psa stable at 3+ wit D rChad[place] e, last 2014 had neg Bx at PSA 3 options discussed agreed to test once more added for fall 2019 Screening for malignant neoplasm of colon 957883747 Z12.11 HP 2011clear 2016good until 2025 per guidelines [id number] Blanca Day MD , [facility] [address] [place] [address] 1 06/03/2020 15:01:03 06/06/2020 19:00:00 Pain in left foot [id number] 86591 M79.672 Rule out fracture Rest, ice, elevation. Tylenol as needed for pain Follow up if no improvemen t [id number] Gifty Rodriguez MD , [facility] [address] [place] [address] 1 11/02/2020 08:26:52 11/02/2020 09:28:18 Adult health examination 885695722 Z00.00 well exam Counseling 026145938 Z71 .9 including cardiovasc ular risk reduction counseling Depression screening 171 743408 Z13.31 depression screening tool administer ed, entered into emr, scored and discussed, time greater than 7.5 minutes Screening for alcohol abuse 785005856 Z13.39 Essential hypertension 91706234 I10 10/2020 124/66 at goal glad that is the caseunclea r why was elevated latewinter early spring1contin ue lisinopril 40, HCTZ 25 tabs* [address] [place] on amlodipine at 2 doses, had no effect on on DBP (RV noted in a Case) would need BB) and only effect was to cause edema 05/04/2020 has been running 140/89 recent weeks amlodipine added at 2.5 asked to portal in BP's in 2 weeks * at goal hctz 25, lisinopril 40 both for many years Active or passive immunization 028561647 Z23 Screening for malignant neoplasm of prostate 386940797 Z12.5 PSA 4.66 10/26/2020 which is dowen from an erratic peak of 6 (04/29/2020 ) psa stable at 3+ with Dr Solitario (who has since left for [place]), last 2014 had neg Bx at PSA 3 options discussed agreed to test once more added for fall 2019 Screening for malignant neoplasm of colon 560117441 Z12.11 HP 2010clear 2016good until 2025 per guidelines [id number] Gifty Rodriguez MD , [facility] [place] [address] [place] [address] 08/07/2021 09:10:49 08/07/2021 09:46:25 Pre-surgery evaluation 151390415 Z01.818 no contraindi cations to cataract surgery with Juans6 /2 and 08/31/2021 Benign ess ential hypertension 3371869 I10 Bp runs 129/89 AT HOMEcontin ue dual meds Prostate s pecific antigen above reference range 093212596 R97.20 stable at4-5 [id number] Gifty Rodriguez MD , [facility] [address] [place] [address] 1 11/06/2021 14:15:34 11/06/2021 15:13:05 Active or passive immunization 371137250 Z23 Benign ess ential hypertension 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 )136/82 Bp runs 129/89 AT HOMEcontin ue dual meds Prostate s pecific antigen above reference range 059031445 R97.20 stable at4-5 Screening for malignant neoplasm of colon 999124324 Z12.11 HP 2010clear 2016good until 2025 per guidelines [id number] Gifty Rodriguez MD , [facility] [address] [place] [address] 1 07/11/2022 07:52:25 07/11/2022 09:10:40 Essential hypertension 08404463 I10 Bp at goal on hctz 25, lisinopril usual care* 10/2020 124/66 at goal glad that is the caseunclea r why was elevated latewinter early spring1contin ue lisinopril 40, HCTZ 25 tabs*3/[address] [place] on amlodipine at 2 doses, had no effect on on DBP (RV noted in a Case) would need BB) and only effect was to cause edema 05/04/2020 has been running 140/89 recent weeks amlodipine added at 2.5 asked to portal in BP's in 2 weeks * at goal hctz 25, lisinopril 40 both for many years [id number] Gifty Rodriguez MD , [facility] [address] [place] [address] 1 08/20/2022 08:55:40 08/20/2022 17:49:39 Transient cerebral ischemia 590782521 G45.9 right sided sense of numbness lasting 1.5 hrsresolve d in house 08/05- 23CT MRI negtele neurology placed him on 3 weeks DAPT then lifelong ator 80 , ASA 81he has no c/o He reports that he gets an acral warm flush 30 minutes after taking statin, did an experiment and is sure it is the Ator 80we will readdress this dose when I see him again in the fallrenewe d at 80 in the mean timehe is well apprised of the situation and care plan [id number] Gifty Rodriguez MD , [facility] [address] [place] [address] 11/16/2022 10:57:18 11/16/2022 12:00:52 Adult health examination 239258714 Z00.00 well exam Depression screening 171 384790 Z13.31 depression screening tool administer ed Screening for alcohol abuse 581123721 Z13.39 Alcohol use screening tool administer ed Essential hypertension 45662334 I10 Bp at goal on hctz 25, lisinopril 40usual care* 10/2020 124/66 at goal glad that is the caseunclea r why was elevated latewinter early spring1contin ue lisinopril 40, HCTZ 25 tabs* [address] [place] on amlodipine at 2 doses, had no effect on on DBP (RV noted in a Case) would need BB) and only effect was to cause edema 05/04/2020 has been running 140/89 recent weeks amlodipine added at 2.5 asked to portal in BP's in 2 weeks * at goal hctz 25, lisinopril 40 both for many years Benign ess ential hypertension 9402199 I10 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 )Home cuff correlates Bp runs 129/89 AT HOMEcontin ue dual meds Screening for malignant neoplasm of colon 283713609 Z12.11 colo scheduled- dec 2022*HP 2011clear 2016good until 2025 per guidelines Counseling 575149042 Z71 .9 including cardiovasc ular risk reduction counseling Screening for malignant neoplasm of prostate 120467627 Z12.5 stable at4-5 PSA 4.66 10/26/2020 which is dowen from an erratic peak of 6 (04/29/2020 ) psa stable at 3+ with Dr Solitario (who has since left for [place]), last 2014 had neg Bx at PSA 3 options discussed agreed to test once more added for fall 2019 Mixed hyperlipidemia 267 836298 E78.2 change from ator at 80 due to likely side effectssta bilized on rosuvasati n 40 mg tab - taking half a tablet Transient cerebral ischemia 375635502 G45.9 right sided sense of numbness lasting 1.5 hrsresolve d in house 08/05- 23CT MRI negtele neurology placed him on 3 weeks DAPT then lifelong ator 80 , ASA 81he has no c/o He reports that he gets an acral warm flush 30 minutes after taking statin, did an experiment and is sure it is the Ator 80we will readdress this dose when I see him again in the fallrenewe d at 80 in the mean timehe is well apprised of the situation and care plan stabilized on rosuvasati n 40 mg tab - taking half a tablet [id number] Nader Blair MD Endoscopy , [facility] [address] [facility] [place] [address] 12/17/2022 07:04:49 12/17/2022 12:30:07 [id number] Gifty Rodriguez MD FP, [facility] [place] [address] [place] [address] 06/17/2023 11:59:03 06/17/2023 12:34:07 Acute orchitis 16251211 N45.2 unilateral pain less swellingap pears to be fluid, but doesnt transillum inatevaric osity ? but developed rapidly as a hydrocoele maythere is no descending mass from the inguinal canalwill ultrasound ddx discussedf /u as US suggests [id number] Gifty Rodriguez MD , [facility] [address] [place], [place] [address] 11/25/2023 08:22:06 11/25/2023 10:21:14 Adult health examination 357458854 Z00.00 well exam Depression screening 171 874796 Z13.31 depression screening tool administer ed Screening for alcohol abuse 258053402 Z13.39 Alcohol use screening tool administer ed Acute orchitis 57834823 N45.2 for aspiration *06/2023 unilateral pain less swellingap pears to be fluid, but doesnt transillum inatevaric osity ? but developed rapidly as a hydrocoele maythere is no descending mass from the inguinal canalwill ultrasound ddx discussedf /u as US suggests Essential hypertension 39212951 I10 Bp at goal on hctz 25, lisinopril 40usual care* 10/2020 124/66 at goal glad that is the caseunclea r why was elevated latewinter early spring1contin ue lisinopril 40, HCTZ 25 tabs* [address] [place] on amlodipine at 2 doses, had no effect on on DBP (RV noted in a Case) would need BB) and only effect was to cause edema 05/04/2020 has been running 140/89 recent weeks amlodipine added at 2.5 asked to portal in BP's in 2 weeks * at goal hctz 25, lisinopril 40 both for many years Benign ess ential hypertension 1258059 I10 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 )Home cuff correlates Bp runs 129/89 AT HOMEcontin ue dual meds Screening for malignant neoplasm of prostate 866007974 Z12.5 stable at4-5 4.71 age 73 PSA 4.66 10/26/2020 which is dowen from an erratic peak of 6 (04/29/2020 ) psa stable at 3+ with Dr Solitario (who has since left for [place]), last 2014 had neg Bx at PSA 3 options discussed agreed to test once more added for fall 2019 Screening for malignant neoplasm of colon 151820898 Z12.11 colo scheduled- dec 2022 one adenoma one HP, OK per guidelines till 2032, Bang ok sooner*HP 2011clear 2016good until 2025 per guidelines Counseling 458421883 Z71 .9 including cardiovasc ular risk reduction counseling Mixed hyperlipidemia 267 248342 E78.2 stabilized on rosuvasati n 40 mg tab - taking half a tablet. LDL at goal (42)change from ator at 80 due to likely side effects Transient cerebral ischemia 991563954 G45.9 assymptoma tic sinceconti nue secondary preventive measures*r ight sided sense of numbness lasting 1.5 hrsresolve d in house 08/05- 23CT MRI negtele neurology placed him on 3 weeks DAPT then lifelong ator 80 , ASA 81he has no c/o He reports that he gets an acral warm flush 30 minutes after taking statin, did an experiment and is sure it is the Ator 80we will readdress this dose when I see him again in the fallrenewe d at 80 in the mean timehe is well apprised of the situation and care plan stabilized on rosuvasati n 40 mg tab - taking half a tablet [id number] Gifty Rodriguez MD , [facility] [address] [place] [address] 06/29/2024 08:08:55 06/29/2024 10:29:39 Benign essential hypertension 5442521 I10 128-132- low 80,s*124/7 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 LDL at goal (42)change from ator at 80 due to likely side effects Health Concerns Section Related Observation LastModified by Organization Detai ls LastModified Time None Recorded Concern Status LastModified by Organization Details LastModified Time None Recorded Advance Directives Directive Y: Payers Encounter Date Sequence Insurance Name Policy Number Policy Vargas Covered Member ID Vargas Member ID Guarantor Name 08/20/2022 1 MEDICARE B-[place]: [facility] Bang Paiz [id number] Bang Paiz 08/20/2022 2 UNICARE - [place]IC (INDEMNITY) [id number] Bang Paiz [id number] Bang Paiz 11/16/2022 1 MEDICARE B-[place]: [facility] Bang Paiz [id number] Bang Paiz 11/16/2022 2 [employer]ICARE - [place] (INDEMNITY) [id number] Bang Paiz [id number] Bang Paiz 06/17/2023 1 MEDICARE B-[place]: [facility] Bang Paiz [id number] Bang Paiz 06/17/2023 2 [employer]IC[employer] - [place] (INDEMNITY) [id number] Bang Paiz [id number] Bang Paiz 11/25/2023 1 MEDICARE B-[place]: [facility] Bang Paiz [id number] Bang Paiz 11/25/2023 2 [employer]IC[employer] - [place] (INDEMNITY) [id number] Bang Paiz [id number] Bang Paiz 06/29/2024 1 MEDICARE B-OK: [facility] Bang Paiz [id number] Bang Paiz 06/29/2024 2 [employer]IC[employer] - [place] (INDEMNITY) [id number] Bang Paiz [id number] Bang Paiz Notes Date Note Type Note Provider Name and Address Organization Details Recorded Time 3 text/html Physical Exam/MaleReported bypatient.PHAPatient is here for a Wellness Visit. He describes his health status as good. Patient's health is better than last year.; PHA. HX OF HBP. HX OF ELEVATED PSA'S IN PAST.Risk Assessment and Lifestyle Change Counseling 65+ (Medicare)Reported bypatient.Safety Risk Assessment:No grab bars in bathroom; Has rails on steps; No falls; has rails on some & some without rails Functional Status:Patient does not have trouble hearing the television or radio when others do not.; Patient does not have to strain or struggle to hear/understand conversations; Patient does not need help with preparing meals, transportation, shopping, taking medicine, managing finances, or other activities of daily living.; Does not live alone; Patient was not unsteady and did not take longer than 30 seconds during the timed get up and go test.; Patient reports no falls in the past 6 months.; pt has cataracts, will have corrected in approx a year -12/20/17VMG HypertensionReported bypatient.Context:No ischemic heart disease; No kidney disease; No history of CVA; No congestive heart failure; No history of transient ischemic attacks; No peripheral vascular disease; No history of diabetes Control:BP Goal less than (150/90); Patient understands medications are to lower blood pressure Compliance:Compliant with medications; Compliant with diet; Compliant with exercise; Compliant with follow-up visits Barriers to CareNo identified barriers to care Self Care:Using home BP monitor weekly home BPs range 120-130/80-85 Associated Symptoms:No chest pain; No shortness of breath; No edema; No fatigue; No palpitations; No decline in exercise capacity; No snoring Ability to Manage Self CareOn how confident the patient feels in ability to self manage condition the patient selects 10 with 10 being very confident and 1 being very low confidence; Patient feels very confident in ability to self manage condition he denies chest pain , BRIAN,SOB, CP, FSC, PALPS Gifty Rodriguez MD [address] [place] [address], [phone], [facility] [place] 11/16/2022 11:56:35 4 text/html Physical Exam/MaleReported bypatient.PHAPatient is here for a Wellness Visit. He describes his health status as good. Patient's health is better than last year.; PHA. HX OF HBP. HX OF ELEVATED PSA'S IN PAST.Risk Assessment and Lifestyle Change Counseling (Medicare)Reported bypatient.Safety Risk Assessment:No grab bars in bathroom; Has rails on steps; No falls; has rails on some & some without rails Functional Status:Patient does not have trouble hearing the television or radio when others do not.; Patient does not have to strain or struggle to hear/understand conversations; Patient does not need help with preparing meals, transportation, shopping, taking medicine, managing finances, or other activities of daily living.; Does not live alone; Patient was not unsteady and did not take longer than 30 seconds during the timed get up and go test.; Patient reports no falls in the past 6 months.; pt has cataracts, will have corrected in approx a year -12/20/17VMG HypertensionReported bypatient.Context:No ischemic heart disease; No kidney disease; No history of CVA; No congestive heart failure; No history of transient ischemic attacks; No peripheral vascular disease; No history of diabetes Control:BP Goal less than (150/90); Patient understands medications are to lower blood pressure Compliance:Compliant with medications; Compliant with diet; Compliant with exercise; Compliant with follow-up visits Barriers to CareNo identified barriers to care Self Care:Using home BP monitor weekly home BPs range 120-130/80-85 Associated Symptoms:No chest pain; No shortness of breath; No edema; No fatigue; No palpitations; No decline in exercise capacity; No snoring Ability to Manage Self CareOn how confident the patient feels in ability to self manage condition the patient selects 10 with 10 being very confident and 1 being very low confidence; Patient feels very confident in ability to self manage condition he denies chest pain , BRIAN,SOB, CP, FSC, PALPS Gifty Rodriguez MD [address] [place] [address], [phone], [facility] [place] 06/19/2023 10:40:11 4 text/html Physical Exam/MaleReported bypatient.PHAPatient is here for a Wellness Visit. He describes his health status as good. Patient's health is better than last year.; PHA. HX OF HBP. HX OF ELEVATED PSA'S IN PAST.Risk Assessment and Lifestyle Change Counseling (Medicare)Reported bypatient.Safety Risk Assessment:No grab bars in bathroom; Has rails on steps; No falls; No evidence of abuse/neglect; has rails on some & some without rails Functional Status:Patient does not have trouble hearing the television or radio when others do not.; Patient does not have to strain or struggle to hear/understand conversations; Patient does not need help with preparing meals, transportation, shopping, taking medicine, managing finances, or other activities of daily living.; Patient does not have visual loss that interferes with daily activities; Does not live alone; Patient was not unsteady and did not take longer than 30 seconds during the timed get up and go test.; Patient reports no falls in the past 6 months.; pt has cataracts, will have corrected in approx a year -12/20/17VMG HypertensionReported bypatient.Context:No ischemic heart disease; No kidney disease; No history of CVA; No congestive heart failure; No history of transient ischemic attacks; No peripheral vascular disease; No history of diabetes Control:BP Goal less than (150/90); Patient understands medications are to lower blood pressure Compliance:Compliant with medications; Compliant with diet; Compliant with exercise; Compliant with follow-up visits Barriers to CareNo identified barriers to care Self Care:Using home BP monitor weekly home BPs range 120-130/80-85 Associated Symptoms:No chest pain; No shortness of breath; No edema; No fatigue; No palpitations; No decline in exercise capacity; No snoring Ability to Manage Self CareOn how confident the patient feels in ability to self manage condition the patient selects 10 with 10 being very confident and 1 being very low confidence; Patient feels very confident in ability to self manage condition he denies chest pain , BRIAN,SOB, CP, FSC, PALPS Gifty Rodriguez MD [address] [place] [address], [phone], [facility] [place] 11/25/2023 09:24:54 5 text/html Physical Exam/MaleReported bypatient.PHAPatient is here for a Wellness Visit. He describes his health status as good. Patient's health is better than last year.; PHA. HX OF HBP. HX OF ELEVATED PSA'S IN PAST.Risk Assessment and Lifestyle Change Counseling (Medicare)Reported bypatient.Safety Risk Assessment:No grab bars in bathroom; Has rails on steps; No falls; No evidence of abuse/neglect; has rails on some & some without rails Functional Status:Patient does not have trouble hearing the television or radio when others do not.; Patient does not have to strain or struggle to hear/understand conversations; Patient does not need help with preparing meals, transportation, shopping, taking medicine, managing finances, or other activities of daily living.; Patient does not have visual loss that interferes with daily activities; Does not live alone; Patient was not unsteady and did not take longer than 30 seconds during the timed get up and go test.; Patient reports no falls in the past 6 months.; pt has cataracts, will have corrected in approx a year -12/20/17VMG HypertensionReported bypatient.Context:No ischemic heart disease; No kidney disease; No history of CVA; No congestive heart failure; No history of transient ischemic attacks; No peripheral vascular disease; No history of diabetes Control:BP Goal less than (150/90); Patient understands medications are to lower blood pressure Compliance:Compliant with medications; Compliant with diet; Compliant with exercise; Compliant with follow-up visits Barriers to CareNo identified barriers to care Self Care:Using home BP monitor weekly home BPs range 120-130/80-85 Associated Symptoms:No chest pain; No shortness of breath; No edema; No fatigue; No palpitations; No decline in exercise capacity; No snoring Ability to Manage Self CareOn how confident the patient feels in ability to self manage condition the patient selects 10 with 10 being very confident and 1 being very low confidence; Patient feels very confident in ability to self manage condition he denies chest pain , BRIAN,SOB, CP, FSC, PALPS Gifty Rodriguez MD [address] [place] [address], [phone], [facility] [place] 06/29/2024 08:48:42
--- OUTSIDE RECORDS SUMMARY | 2024-07-21 11:11 | XMS_ITS | Clinical Summary ---
Author Organization [facility] Address [address] [place] [address] Phone Care Team Providers Care Promotional Demonstrator Name Role Phone Reid Rodriguez MD Primary Care Provider [phone] Allergies Active Allergy Reactions Criticality Noted Date Comments Amlodipine 08/06/2022 Medications Medication Sig Dispensed Refills Start Date End Date Status hydroCHLOROthiazide (HYDRODIURIL) 25 MG tablet 05/05/2022 Active lisinopril (PRINIVIL,ZESTRIL) 40 MG tablet 05/05/2022 Active aspirin 81 mg chewable tablet Take 1 tablet (81 mg total) by mouth daily. 90 tablet 1 08/07/2022 Active atorvastatin (LIPITOR) 80 MG tablet Take 1 tablet (80 mg total) by mouth daily. 90 tablet 1 08/07/2022 Active clopidogrel (PLAVIX) 75 mg tablet Take 1 tablet (75 mg total) by mouth daily. 21 tablet 08/07/2022 Active Active Problems Problem Noted Date Diagnosed Date TIA (transient ischemic attack) 08/05/2022 Assessment & Plan (08/05/2022 1:53 PM EDT): -Patient presented with right arm numbness and tingling which began at around 8 AM and progressed to some disequilibrium with possible right leg numbness, and right face numbness, all symptoms resolved after about 1 - 1.5 hrs. patient denied any associated vision changes, no facial asymmetry, no slurred speech -CT head and CTA head and neck showed no acute pathology -Follow up MRI brain -Will discuss with tele neuro once imaging results available -Monitor on tele -PT/OT eval -Follow up HbA1c, TSH, ESR, CRP, lipid panel -Start aspirin, plavix and high-dose statin HTN (hypertension) 08/05/2022 Assessment & Plan (08/05/2022 1:52 PM EDT): -Hold lisinopril and hydrochlorothiazide, permissive hypertension while stroke is being ruled out Immunizations Name Administration Dates Next Due COVID-19 (Pre-01/07) Moderna Vaccine, mRNA, PF 0 06/04/2020,05/07/2020 Family History Medical History Relation Comments Hypertension Father Lung cancer Father Lung cancer Mother Relation Status Comments Father Mother Social History Tobacco Use Types Packs/Day Years [...] on file Sexual Orientation Not on file Last Filed Vital Signs Vital Sign Reading Time Taken Comments Blood Pressure 170/95 08/06/2022 4:20 PM EDT Pulse 65 08/06/2022 4:20 PM EDT Temperature 36.4 ??C (97.5 ??F) 08/06/2022 4:20 PM ED T Respiratory Rate 18 08/06/2022 4:20 PM EDT Oxygen Saturation 98% 08/06/2022 4:20 PM EDT Inhaled Oxygen Concentration - - Weight 95.7 kg (211 lb) 08/06/2022 6:35 AM EDT Height 185.4 cm (6' 1 ) 08/05/2022 2:10 PM EDT Body Mass Index 27.84 08/05/2022 2:10 PM EDT Plan of Treatment Health Maintenance Due Date Last Done Comments BLOOD PRESSURE 1950 DEPRESSION SCREENING 1961 SMOKING Hx and SMOKELESS TOBACCO SCREENING 1962 HEPATITIS C SCREENING 09/02/1967 COLOGUARD 1994 COLONOSCOPY 1994 COLORECTAL CANCER SCREENING 1994 FIT TEST 1994 FOBT 1994 SIGMOIDOSCOPY 1994 VIRTUAL COLONOSCOPY 1994 RSV VACCINE (1 - Risk 60-74 years 1-dose series) 2009 ABDOMINAL AORTIC ANEURYSM (AAA) SCREENING 2014 CREATININE LEVEL 08/06/2023 08/05/2022 POTASSIUM LEVEL 08/06/2023 08/05/2022 COVID-19 VACCINE ( season) 2023 12/30/2022, 06/28/2021, 01/06/2021, Additional history exists LIPID PANEL 08/07/2027 08/06/2022, 08/05/2022 Adult Td,Tdap Booster 11/02/2030 11/02/2020, 010 PNEUMOCOCCAL VACCINES (50+ years) Completed 11/06/2021, 11/28/2015, 10/05/2010 ZOSTER VACCINES Completed 12/12/2021, 10/02/2021 HEPATITIS A VACCINES Aged Out No long er eligible based on patient's age to complete this topic HIB VACCINES Aged Out No longer eligi ble based on patient's age to complete this topic MENINGOCOCCAL VACCINES (ACWY) Aged Out No longer eligible based on patient's age to complete this topic Medical Devices Not on file Procedures Procedure Name Priority Date/Time Associated Diagnosis Comments LIPID PANEL Routine 08/06/2022 6:23 AM EDT BASIC METABOLIC PANEL STAT 08/05/2022 10:48 AM EDT from Last 3 Months or Most Recently Relevant to Health Maintenance Results * Lipid panel (08/06/2022 6:23 AM EDT) HDL 58 mg/dL [facility] Comment: ? Interpretation <40 mg/dL: Low HDL cholesterol (major risk factor for CHD) Greater than or equal to 60 mg/dL: High HDL cholesterol ( negative risk factor for CHD) HDL - cholesterol is affected by a number of factors, e.g. smoking, excerise, hormones, sex and age. CHOLESTEROL 204 0 - 240 mg/dL [facility] TRIGLYCERIDES 160 30 - 160 mg/dL [facility] LDL 114 50 - 129 mg/dL [facility] Comment: LDL levels in terms of risk for coronary heart disease: <100 mg/dL: Optimal 100-129 mg/dL: Near or above optimal 130-159 mg/dL: Borderline high 160-189 mg/dL: High >190 mg/dL: Very High CARDIAC RISK RATIO 3.5 3.4 - 5.0 [facility] Blood 08/06/2022 6:23 AM EDT 08/06/2022 7:12 AM EDT Myra Bingham DO LAB BLOOD ORDERABLES [address] [address] * Basic metabolic panel (08/05/2022 10:48 AM EDT) SODIUM 138 133 - 146 mmol/L [facility] CHLORIDE 104 96 - 108 mmol/L [facility] POTASSIUM 4.5 3.3 - 5.1 mmol/L [facility] CO2 26 21 - 35 mmol/L [facility] BUN 13 6 - 19 mg/dL [facility] CREATININE 0.90 0.5 - 1.5 mg/dL [facility] GLUCOSE 82 70 - 99 mg/dL [facility] CALCIUM 9.2 8.4 - 10.3 mg/dL [facility] EGFR 91 >59 mL/min/1.7 3m2 [facility] Comment:Estimated glomerular filtration rate calculated using the CKD-EPI refit equation. ANION GAP 13 10 - 20 mmol/L [facility] Blood 08/05/2022 10:4 8 AM EDT 08/05/2022 10:52 AM EDT Emily Lopez DO LAB BLOOD ORDERABLES [facility] [address] [place] [address] from Last 3 Months or Most Recently Relevant to Health Maintenance Bang Beck Personal/Family Self [address] [facility] [address] [place] [address] Bang Beck Personal/Family Self 1950 [address] [facility] [address] [place] [address] Bang Beck Personal/Family Self 1950 [address] [place], [place] [address]Bang Bright Personal/Family Self [address] [facility] [address] [place] [address] Advance Directives For more information, please contact: [phone] (9AM - 5PM [facility], Saturday-Saturday) * Full Code (Latest Code Status on File) Date Activated Date Inactivated Comments 08/05/2022 1:59 PM Question Answer Comments Code Status Confirmed With: Patient Healthcare Agents on File Name Relationship Healthcare Agent [facility] Luz Oates Spouse Other (no proxy form on file ) Care Teams Promotional Demonstrator Relationship Specialty Start Date End Date Reid Rodriguez MD [address] [place] [phone] [email or web address] PCP - General Internal Medicine 08/06/22 Additional Source Comments The information contained in this document represents components of the legal health record. It is not the complete legal health record.[facility]
[2024-07-21 11:45] LABS: PSA,Total (Free>4and<10) 6.04 ng/mL (0.00-4.00)
[2024-07-23 10:28] LABS: Free Prostate Spec Ag 1.6 ng/mL; Percent Free Prostate Spec Ag 29 % (calc) (>25); Prostate Specific Ag Total 5.6 ng/mL (< OR = 4.0)
== END 2024-07-21 09:55 | disposition home or self-care (01) ==
LOC: HO.LAB 09:54
PROVIDERS: PCP Internal Medicine; Visit Provider Urology
DX: N40.0 Benign prostatic hyperplasia without lower urinary tract symptoms (principal); R97.20 Elevated prostate specific antigen [PSA]; Z12.5 Encounter for screening for malignant neoplasm of prostate
CPT/HCPCS: 36415; 84153; 84154

== ENCOUNTER 2024-08-14 09:22 | Outpatient (AMB) | payer MEDICARE, OTHER, SELFPAY ==
--- NOTE | 2024-08-14 09:30 | MHC.OFFVIS ---
Intake Visit Reasons: 1y/PSA Intake Note: Patient is present for 1Y/PSA Urology Medication:NONE Antibiotic Allergy:NONE Blood Thinner:NONE Application Packaging Specialist Required: No Allergies No Known Allergies Allergy (Verified 08/14/24 09:31) HPI Comments Details: Bang is a pleasant male. He is seen for the following urologic conditions. - elevated PSA - BPH Elevated PSA in setting of enlarged prostate Minimal symptoms High free PSA Follow yearly and obtain bladder ultrasound to estimate prostate size BPH with elevated PSA Minimal symptoms KENIA 3+ Followed for elevated PSA for a number of years PSA- 08/09 5.6 30% PFSH Medical History Elevated prostate specific antigen [PSA] HTN (hypertension) Surgical History Hx of prostate biopsy Hx of tooth extraction Hx of colonoscopy History of bilateral inguinal herniorrhaphies Social History Alcohol intake: current Alcohol intake frequency: does not drink Patient Tobacco Use Status: Former Tobacco user Review of Systems Const Denies chills and Denies fever(s) Card Reports no additional complaints and Denies syncope Resp Denies cough GI Denies abdominal pain and Denies heartburn Reports as per HPI and Denies change in libido Neuro Denies syncope Psych Denies change in libido Endo Denies change in libido Physical Exam Const General: cooperative, healthy appearing, comfortable and no acute distress Orientation/consciousness: patient oriented x3 HEENT Face and sinus: Yes normal facial exam Mouth: moist mucous membranes Neck Neck: Yes normal visual inspection, Yes full ROM and Yes trachea midline Chest Chest palpation & inspection: normal inspection of the chest Resp Effort & Inspection: normal respiratory effort, able to speak in complete sentences and no respiratory distress GI Inspection: Yes normal to inspection Rectal Exam - Male: Yes normal sphincter tone and Yes prostate normal Male General Exam: Yes normal external exam Penis: normal penis and circumcised Meatus: meatus normal Scrotum: scrotum normal Testes: Testes normal Back/Spine/Pelvis Cervical Spine: normal cervical lordosis Thoracic/Lumbar Spine: thoracic and lumbar spine normal to inspection Skin General skin exam: no rashes or lesions noted Neuro General: patient oriented x3, gait normal, tone normal and moves all extremities Extrem General: Yes normal to inspection and Yes capillary refill normal Assessment & Plan Assessment & Plan (1) BPH with elevated PSA: Code(s): N40.0 - Benign prostatic hyperplasia without lower urinary tract symptoms; R97.20 - Elevated prostate specific antigen [PSA] Category: Medical Plan One year follow-up repeat PSA Orders: Orders US bladder 1 Year R39.12 - Poor urinary stream, N40.0 - Benign prostatic hyperplasia without lower urinary tract symptoms, R97.20 - Elevated prostate specific antigen [PSA] PSA,Total (Free>4and<10) 12 Months N40.0 - Benign prostatic hyperplasia without lower urinary tract symptoms, R97.20 - Elevated prostate specific antigen [PSA] Patient Instructions: This note is constructed using voice recognition software. While every effort has been made to ensure accuracy heat transfer technician errors may have been included. Imaging studies, laboratory and physical exam results were discussed and reviewed in detail. No major barriers to patient understanding were identified. An opportunity to ask questions regarding the treatment plan was provided. All questions were answered. The patient expressed understanding and agreement with the above treatment plan. The patient is aware they should contact our office by phone for worsening of their current condition or the appearance of new urologic symptoms. Compliance is encouraged with any medications and followup testing that is ordered. It is a privilege to participate in the urologic care of your patient. If you have any questions or concerns regarding treatment for the above conditions, or other urologic issues, please do not hesitate to contact me. The office telephone contact is [phone]. Sincerely, Dr Florencio Cruz MD, [facility] - Urology Compassionate Specialist Care for the Genitourinary System Coding Level of Care Code Est Pt Level 4 (60862) Diagnoses BPH with elevated PSA N40.0; R97.20
--- OUTSIDE RECORDS SUMMARY | 2024-08-14 09:38 | XMS_ITS | Data Portability ---
Author Organization [facility], [facility] Address [address] [place] [address] Care Team Providers Care Letterpress Setter Name Role Phone GIFTY RODRIGUEZ Primary Care Provider JON ESCALANTE Billing Services Manager Assessment Encounter Date Assessment Date Assessment LastModified [...] vaccine. 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 * [place] in [place] 10/2020 well enjoy [place] * 05/04/2020 had repair of retinal tear last week with Heladio Mullins 10/27/2019 former [facility] patient, first meet with RV had root canal yesterday and on amoxicillin Home BP 131/84 WT [address] 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 * [place] in [place] 10/2020 well enjoy [facility]- * 05/04/2020 had repair of retinal tear last week with Heladio Mullins 10/27/2019 former [facility] patient, first meet with RV had root canal yesterday and on amoxicillin Home BP 131/84 WT [address] 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 Please visit our website [email or web address] for more patient resources. As part of your care plan, we will help coordinate your ongoing medical needs, arrange for durable medical equipment, renew prescriptions and necessary prior authorizations, facilitate getting referrals and collaborating with specialist, referrals for VNA services. [email or web address] Not available 06/29/2024 08:25:40 Plan of Treatment Reminders Order Date Submit Date Provider Last Modified By Organization Details Last Modified Time Details Appointments LAB Follow -Up 2024 07:30A M [facility] Not available Not available Not available Wellne ss Visit 30 2024 08:30A M Gifty Rodriguez MD Not available Not available Not available Lab PSA, serum or plasma 2024 025 [facility], [address] [facility], [place], [address], 06/29/2024 08:45:55 Referral None record ed. Procedures holter monito r placem ent (PROC) - TIA observ ed overni ght at [facility] 08/05-04/2022 . 30 day r.o afib 2022 023 [facility], [address], [place], [address], 12/21/2022 10:41:23 Surgeries None record ed. Imaging US, scrotu m 2023 024 [facility] (Imaging), [address] , [place], [address], 06/21/2023 09:42:15 Medication Orders hydroc hlorot hiazid e 25 mg tablet 2022 023 [facility], [place], [address], 11/16/2022 11:55:42 lisino pril 40 mg tablet 2022 023 [facility], [facility], [place], [address], 11/16/2022 11:55:42 clopid ogrel 75 mg tablet 2022 023 [email or web address] [facility], [place], [address], 11/16/2022 11:17:01 atorva statin 80 mg tablet 2022 023 [email or web address] [facility], [address] [facility], [place], [address], 11/16/2022 11:16:58 Patient TargetsNo targets recorded. Patient Instructions Encounter Date Encounter Id Patient Instructions Last Modified By Organization Details Last Modified Time 08/20/2022 [id number] I am aware of e inpatient facility discharge medications, the medication list above has been reconciled with those medications and reflects my understanding of an up to date medication list for this patient. [email or web address] Not available 08/20/2022 09:43:00 11/16/2022 [id number] high blood pressure: care instructions [email or web address] Not [...] worry, expense and possibly shorter life expectancy. [email or web address] Not available 11/16/2022 11:12:10 11/25/2023 [id number] preventing falls : care instructions [email or web address] Not available 11/25/2023 09:24:08 hearing loss information [email or web address] Not available 11/25/2023 09:24:08 advance directives: care instructions [email or web address] Not available 11/25/2023 09:24:08 well visit, over 65: care instructions [email or web address] Not available 11/25/2023 09:24:08 CCM: The provide r and patient discussed the Chronic Care Management program, including the services provided, and any fees associated with them. [email or web address] Not available 11/25/2023 08:45:15 06/29/2024 [id number] high blood pressure: care instructions [email or web address] Not available 06/29/2024 08:45:55 learning about [facility] blood [facility] Not [facility] 06/29/2024 08:45:55 Reason for Referral None Reported. Results Created Date Observation Date Name Description Value Unit Range Abnormal Flag Note LastModifiedBy Organization Detail LastModifiedTime 11/08/1911/07/2022 PSA PSA 4.74 NG/mL 0.00-4 .00 high Not Available [address], [address], 11/07/2022 12:16:32 11/08/1911/07/2022 LIPID PANEL cholesterol 135 mg/dL <200 mg/dl Tung able 200-2 39 mg/dl Borde rline High >240 mg/dl High Not Available [address], [address], 11/07/2022 16:23:00 11/08/1911/07/2022 LIPID PANEL triglyceride s 117 mg/dL <150 mg/dL Heather l 150-1 99 mg/dL Borde rline High 200-4 99 mg/dL High >500 mg/dL Very High Not Available [address], [address], 11/07/2022 16:23:00 11/08/1911/07/2022 LIPID PANEL direct HDL 58 mg/dL <40 mg/dl - Major Risk for CHD >60 mg/dl - Negat denzel Risk for CHD Not Available [address], [address], 11/07/2022 16:23:00 11/08/19 23 11/07/2022 ALT ALT 56 U/L 6-63 Not Available [address], [address], 11/07/2022 16:23:01 11/08/1911/07/2022 LDL - CALCU LATED [...] r is not neces estefani. Not Available [address], [address], 11/07/2022 16:23:02 12/18/19 23 12/18/2022 ANATO NESTOR PATHO LOGY path report [facility] [address] [place] [address] Lab Direc tor: Regina jose MD Surgi [...] Resul ts To: Nader lenz MD, AB Travis brush MD, POST- BA, BA Weinberg y Medic al Speci altie s Not Available [facility] (Outpatient) [address] [place] [address], [address], 12/18/2022 15:38:59 06/10/19 24 06/10/2023 BASIC METAB OLIC PANEL glucose 91 mg/dL 70-100 Not Available [address], [address], 06/10/2023 11:08:19 06/10/19 24 06/10/2023 BASIC METAB OLIC PANEL BUN 15 mg/dL 7-18 Not Available [address], [address], 06/10/2023 11:08:19 06/10/19 24 06/10/2023 BASIC METAB OLIC PANEL creatinine 1.0 mg/dL 0.8-1. 3 Not Available [address], [address], 06/10/2023 11:08:19 06/10/19 24 06/10/2023 BASIC METAB OLIC PANEL B/C 15.0 ratio Not Available [address], [address], 06/10/2023 11:08:19 06/10/19 24 06/10/2023 BASIC METAB [...] be used in pregn julian. Not Available [address], [address], 06/10/2023 11:08:19 06/10/19 24 06/10/2023 BASIC METAB OLIC PANEL sodium 143 mmol/ L 136-14 5 Not Available [address], [address], 06/10/2023 11:08:19 06/10/19 24 06/10/2023 BASIC METAB OLIC PANEL potassium 4.8 mmol/ L 3.5-5. 1 Not Available [address], [address], 06/10/2023 11:08:19 06/10/19 24 06/10/2023 BASIC METAB OLIC PANEL chloride 105 mmol/ L 96-107 Not Available [address], [address], 06/10/2023 11:08:19 06/10/19 24 06/10/2023 BASIC METAB OLIC PANEL anion gap 8.1 5.0-15 .0 Not Available [address], [address], 06/10/2023 11:08:19 06/10/19 24 06/10/2023 BASIC METAB OLIC PANEL CO2 30 mmol/ L 21-32 Not Available [address], [address], 06/10/2023 11:08:19 06/10/19 24 06/10/2023 BASIC METAB OLIC PANEL calcium 9.3 mg/dL 8.5-10 .3 Not Available [address], [address], 06/10/2023 11:08:19 06/10/19 24 06/10/2023 LIPID PANEL cholesterol 129 mg/dL <200 mg/dl Tung able 200-2 39 mg/dl Borde rline High >240 mg/dl High Not Available [address], [address], 06/10/2023 11:08:20 06/10/19 24 06/10/2023 LIPID PANEL triglyceride s 54 mg/dL <150 mg/dL Heather l 150-1 99 mg/dL Borde rline High 200-4 99 mg/dL High >500 mg/dL Very High Not Available [address], [address], 06/10/2023 11:08:20 06/10/19 24 06/10/2023 LIPID PANEL direct HDL 66 mg/dL <40 mg/dl - Major Risk for CHD >60 mg/dl - Negat denzel Risk for CHD Not Available [address], [address], 06/10/2023 11:08:20 06/10/19 24 06/10/2023 LDL - [...] r is not terry jara. Not Available [address], [address], 06/10/2023 11:08:21 06/10/19 24 06/10/2023 PSA PSA 4.71 NG/mL 0.00-4 .00 high Not Available [address], [address], 06/10/2023 15:30:37 11/11/19 24 11/11/2023 BASIC METAB OLIC PANEL glucose 83 mg/dL 70-100 Not Available [address], [address], 11/11/2023 14:14:54 11/11/19 24 11/11/2023 BASIC METAB OLIC PANEL BUN 11 mg/dL 7-18 Not Available [address], [address], 11/11/2023 14:14:54 11/11/19 24 11/11/2023 BASIC METAB OLIC PANEL creatinine 0.9 mg/dL 0.8-1. 3 Not Available [address], [address], 11/11/2023 14:14:54 11/11/19 11/11/2023 BASIC METAB OLIC PANEL B/C 12.2 ratio Not Available [address], [address], 11/11/2023 14:14:54 11/11/19 24 11/11/2023 BASIC METAB [...] be used in pregn julian. Not Available [address], [address], 11/11/2023 14:14:54 11/11/1911/11/2023 BASIC METAB OLIC PANEL sodium 140 mmol/ L 136-14 5 Not Available [address], [address], 11/11/2023 14:14:54 11/11/1911/11/2023 BASIC METAB OLIC PANEL potassium 4.2 mmol/ L 3.5-5. 1 Not Available [address], [address], 11/11/2023 14:14:54 11/11/19 24 11/11/2023 BASIC METAB OLIC PANEL chloride 103 mmol/ L 96-107 Not Available [address], [address], 11/11/2023 14:14:54 11/11/19 24 11/11/2023 BASIC METAB OLIC PANEL anion gap 11.0 5.0-15 .0 Not Available [address], [address], 11/11/2023 14:14:54 11/11/19 24 11/11/2023 BASIC METAB OLIC PANEL CO2 26 mmol/ L 21-32 Not Available [address], [address], 11/11/2023 14:14:54 11/11/19 24 11/11/2023 BASIC METAB OLIC PANEL calcium 9.1 mg/dL 8.5-10 .3 Not Available [address], [address], 11/11/2023 14:14:54 11/11/19 24 11/11/2023 LIPID PANEL cholesterol 123 mg/dL <200 mg/dl Tung able 200-2 39 mg/dl Borde rline High >240 mg/dl High Not Available [address], [address], 11/11/2023 14:14:55 11/11/19 24 11/11/2023 LIPID PANEL triglyceride s 113 mg/dL <150 mg/dL Heather l 150-1 99 mg/dL Borde rline High 200-4 99 mg/dL High >500 mg/dL Very High Not Available [address], [address], 11/11/2023 14:14:55 11/11/1911/11/2023 LIPID PANEL direct HDL 58 mg/dL <40 mg/dl - Major Risk for CHD >60 mg/dl - Negat denzel Risk for CHD Not Available [address], [address], 11/11/2023 14:14:55 11/11/19 24 11/11/2023 LDL - [...] r is not terry jara. Not Available [address], [address], 11/11/2023 14:14:55 06/24/19 25 06/23/2024 BASIC METAB OLIC PANEL glucose 85 mg/dL 70-100 Not Available [address], [address], 06/23/2024 15:19:08 06/24/19 25 06/23/2024 BASIC METAB OLIC PANEL BUN 14 mg/dL 7-18 Not Available [address], [address], 06/23/2024 15:19:08 06/24/19 25 06/23/2024 BASIC METAB OLIC PANEL creatinine 1.0 mg/dL 0.8-1. 3 Not Available [address], [address], 06/23/2024 15:19:08 06/24/19 25 06/23/2024 BASIC METAB OLIC PANEL B/C 14.0 ratio Not Available [address], [address], 06/23/2024 15:19:08 06/24/19 25 06/23/2024 BASIC METAB [...] be used in pregn julian. Not Available [address], [address], 06/23/2024 15:19:08 06/24/19 25 06/23/2024 BASIC METAB OLIC PANEL sodium 144 mmol/ L 136-14 5 Not Available [address], [address], 06/23/2024 15:19:08 06/24/19 25 06/23/2024 BASIC METAB OLIC PANEL potassium 4.5 mmol/ L 3.5-5. 1 Not Available [address], [address], 06/23/2024 15:19:08 06/24/19 25 06/23/2024 BASIC METAB OLIC PANEL chloride 106 mmol/ L 96-107 Not Available [address], [address], 06/23/2024 15:19:08 06/24/19 25 06/23/2024 BASIC METAB OLIC PANEL anion gap 12.5 5.0-15 .0 Not Available [address], [address], 06/23/2024 15:19:08 06/24/19 25 06/23/2024 BASIC METAB OLIC PANEL CO2 26 mmol/ L 21-32 Not Available [address], [address], 06/23/2024 15:19:08 06/24/19 25 06/23/2024 BASIC METAB OLIC PANEL calcium 9.6 mg/dL 8.5-10 .3 Not Available [address], [address], 06/23/2024 15:19:08 06/24/19 25 06/23/2024 LIPID PANEL cholesterol 138 mg/dL <200 mg/dl Tung able 200-2 39 mg/dl Borde rline High >240 mg/dl High Not Available [address], [address], 06/23/2024 15:19:09 06/24/19 25 06/23/2024 LIPID PANEL triglyceride s 124 mg/dL <150 mg/dL Heather l 150-1 99 mg/dL Borde rline High 200-4 99 mg/dL High >500 mg/dL Very High Not Available [address], [address], 06/23/2024 15:19:09 06/24/19 25 06/23/2024 LIPID PANEL direct HDL 71 mg/dL <40 mg/dl - Major Risk for CHD >60 mg/dl - Negat denzel Risk for CHD Not Available [address], [address], 06/23/2024 15:19:09 06/24/19 25 06/23/2024 LDL - [...] r is not neces estefani. Not Available [facility] [address] [facility], [place], [address], 06/23/2024 15:19:10 07/22/19 25 07/21/2024 PSA, total + free, serum or plasm a PSA 5.6 Not Available [facility] (Medical Records) [address] [place], [address], 07/23/2024 11:25:28 07/22/19 25 07/21/2024 PSA, serum or plasm a PSA 6.04 Not Available [facility] (Medical Records) [address] [place], [address], 07/22/2024 11:19:58 12/22/19 23 09/03/2022 rianna r monit or place ment (PROC ) No observ ation record ed. [facility] [address], [place], [address], 12/21/2022 15:17:49 06/21/19 24 06/21/2023 US, scrot [...] Readin g Physic lillian: Ceci Tucker ms [facility] (Im[facility]) [address] , [place], [address], 11/25/2023 08:55:41 Result Notes None recorded. Problems Name Problem SNOMED Code Status Onset Date Resolution Date Notes Provider Name and Address Organization Details Recorded Time Nonvenomous insect bite of multiple sites 703613935 Completed 200607/30/2011 MD [place], [address], [facility] 08:23:13 Essential hypertensio n 63764008 Completed 11/04/2014 [place], [address], [facility] 08:23:13 On examination - a rash Completed 200207/30/2011 MD [place], [address], [facility] 08:23:13 Subcutaneou s nodule 50415964 Completed 200707/30/2011 [place], [address], [facility] 08:23:13 Pain of shoulder region 29877548 Completed 200007/30/2011 [place], [address], [facility] 08:23:13 Prostate specific antigen above reference range 726015351 Active 2005 [place], [address], [facility] 08:23:13 Elevated blood-press ure reading without diagnosis of hypertensio n 963165046 Completed 200207/30/2011 [place], [address], [facility] 08:23:13 Benign essential hypertensio n 7077254 Active 2000 Asiya Kennedy [facility] 6 13:30:07 Nocturia 050563843 Completed 200507/30/2011 [place], [address], [facility] 08:23:13 Malaise and fatigue 471960183 Completed 200307/30/2011 Zack Villegas MD [facility] [place], [address], [facility] 6 08:23:13 Benign prostatic hyperplasia 099092729 Completed 200707/30/2011 [place], [address], [facility] 08:23:13 Shoulder stiff 424888707 Completed 200007/30/2011 [place], [address], [facility] 6 08:23:13 Cystic fibrosis 471341139 Completed 200207/30/2011 Zack Villegas MD [facility] [place], [address], [facility] 6 08:23:13 Mixed hyperlipide alesia 260093392 Active 2024 [place], [address], [facility] 5 08:47:20 Problem Notes None recorded. Procedures Surgical History Date Name Laterality Status Provider Name and Address Organization Details Recorded Time 11/25/19 24 Medicare Wellness Visit completed Nuris Barraza [facility] 11/25/2023 08:44:41 11/17/19 23 Medicare Wellness Visit completed Nuris Barraza [facility] 11/16/2022 11:12:11 08/21/19 23 Post hospital/SNF follow-up/Transiti onal Care completed Gifty Rodriguez MD [address] [place] [address], [phone], [facility] 08/20/2022 09:43:00 11/03/19 21 Medicare Wellness Visit completed Nuris Barraza [facility] 11/02/2020 08:33:40 11/03/19 21 prevention-cardiov ascular risk reduction counseling completed Nuris Barraza [facility] 11/02/2020 08:33:40 11/03/19 21 prevention-annual alcohol misuse screening completed Nuris Barraza [facility] 11/02/2020 08:33:40 12/21/19 18 Medicare Wellness Visit completed Warren García [facility] 12/20/2017 09:32:30 12/01/19 17 Medicare Wellness Visit completed Laura Robertson LPN [facility] 11/30/2016 08:44:04 11/28/19 16 Medicare Wellness Visit completed Laura Robertson LPN [facility] 11/28/2015 11:32:15 09/23/19 16 Johnnie - Colonoscopy completed Nader Blair MD [address] [place] [address], [address], [facility] 09/23/2015 08:32:08 09/23/19 16 Colonoscopy completed Zack Villegas MD [address] [place] [address], [phone], [facility] 09/23/2015 17:21:20 06/08/19 11 Colonoscopy completed Zack Villegas MD [address] [place] [address], [address], [facility] 11/03/2013 08:49:51 12/22/19 09 Corticosteroid Injection completed Zack Villegas MD [address] [place] [address], [phone], [facility] 12/21/2008 08:49:42 08/11/19 09 Treatment and Advice completed Minnie Wray, OT [address] [facility], [place], [address], [facility] 08/10/2008 09:02:33 05/03/19 06 completed Not Available [facility] 02/01/2011 06:05:52 Imaging Results None recorded. Procedure Notes None recorded. Medical Equipment None Reported. Allergies Allergen ID Allergen Name Allergen Category Reaction Reaction Severity Criticality Documentation Date Start Date Code Code System Note Provider Name and Address Organization Details Recorded Time 645511 amlodipin e medicatio n swelling mild Not available 11/25/2023 25334 RxNorm Nuris Barraza CMA null, [facility] 4 08:47:02 Medications Name Sig Start Date Stop [...] completed Not Available Not Available Not Available triamcinol one acetonide 0.1 % topical cream APPLY TWICE DAILY TO AFFECTED AREAS OF RASH FOR UP TO 2 WEEKS. DO NOT USE ON FACE. active Not Available Not Available No t Available ketorolac 0.5 % eye drops INSTILL [...] doxycyclin e monohydrat e 100 mg capsule TAKE 2 CAPSULES BY MOUTH FOR ONE DOSE active Not Available Not Available No t Available aspirin 81 mg chewable tablet TAKE 1 [...] completed Not Available Not Available Not Available [facility] 10 billion cell-200 mg chewable tablet Take [...] Updated DateTime 4 183.52 cm 28.9 kg/m2 38311.1 7 g 98 % 98 % 58 /min 118 mm[Hg] 74 mm[Hg] Nuris Barraza [facility] 4 12:05:31 Date Recorded Body height Body mass index (BMI) Body weight Heart rate Oxygen saturation Oxygen saturation in Arterial blood by Pulse oximetry Systolic blood pressure Diastolic blood pressure Provider Name and Address Organization Details Last Updated DateTime 5 183.52 cm 28.8 kg/m2 00342.9 7 g 54 /min 100 % 100 % 142 mm[Hg] 84 mm[Hg] Nuris Barraza [facility] 5 08:23:07 Date Recorded Body height Body mass index (BMI) Body weight Systolic blood pressure Diastolic blood pressure Provider Name and Address Organization Details Last Updated DateTime 08/20/2022 183.52 cm 29.4 kg/m2 90416.14 g 138 mm[Hg] 74 mm[Hg] Nuris Barraza [facility] 3 09:00:37 Date Recorded Body height Body mass index (BMI) Body weight Heart rate Oxygen saturation Oxygen saturation in Arterial blood by Pulse oximetry Systolic blood pressure Diastolic blood pressure Provider Name and Address Organization Details Last Updated DateTime 3 183.52 cm 29.3 kg/m2 61349.3 4 g 53 /min 98 % 98 % 126 mm[Hg] 78 mm[Hg] Nuris Barraza [facility] 3 11:20:39 Date Recorded Body height Body mass index (BMI) Body weight Oxygen saturation Oxygen saturation in Arterial blood by Pulse oximetry Heart rate Systolic blood pressure Diastolic blood pressure Provider Name and Address Organization Details Last Updated DateTime 4 183.52 cm 29 kg/m2 10081.4 6 g 100 % 100 % 69 /min 118 mm[Hg] 76 mm[Hg] Nuris Barraza [facility] 4 08:52:18 Social History Question Answer Notes LastModified by Organizat ion Details LastModified Time Tobacco Smoking Status Former Smoker quit 47 years ago. 4 PK YRS 11/30/16- 06/04/20 tory Arriaga [facility] 06/03/2020 15:03:56 Do You Have An Advance Directive? Yes Information not available 02/01/2011 Do You Wear A Helmet When Biking? Yes When Biking everette Information not available 11/04/2014 What Is Your Level Of Caffeine Consumption? Moderate 1-2 Cups Daily [email or web address] Information not available 11/02/2020 What Type Of Diet Are You Following? REGULAR [email or web address] Information not available 11/02/2020 Have There Been Any Changes To Your Family Or Social Situation? No [email or web address] Information not available 11/02/2020 Are There Any Guns Present In Your Home? No Information not available 11/04/2014 Do You Use Insect Repellent Routinely? Yes [email or web address] Information not available 11/02/2020 Live Alone Or With Others? With Others 17 Information not available 02/01/2011 Patient Has Health Care Proxy Signed And In Chart Yes [email or web address] Information not available 08/08/2015 CCM Consent Discussion 11/25/2023 [email or web address] Information not available 11/26/2023 Marital Status [email or web address] [id number] Information not available 02/01/2011 Mosquito Repellent Used Routinely Yes [email or web address] Information not available 11/04/2014 What Was The Date Of Your Most Recent Tobacco Screening? 06/03/2020 06/04/20 [email or web address] Information not available 06/03/2020 How Many Children Do You Have? 1 17 Information not available 02/01/2011 What Is Your Current Pack Years? 10packyears [email or web address] Information not available 10/04/2023 What Is Your Relationship Status? [email or web address] Information not available 11/02/2020 Do You Use Your Seat Belt Or Car Seat Routinely? Yes [email or web address] Information not available 11/02/2020 Seat Belts Used Routinely Yes [email or web address] Information not available 11/04/2014 Smoke Alarm In Home Yes [email or web address] Information not available 11/04/2014 Do You Have Smoke And Carbon Monoxide Detectors In Your Home? Yes [email or web address] Information not available 11/02/2020 At What Age Did You Start Smoking Tobacco? [age] Information not available 02/01/2011 Do You Use Sunscreen Routinely? Yes Information not available 11/04/2014 How Many Days In The Past Year Have You Consumed 5 Or More Drinks? 0 [email or web address] Information not available 11/02/2020 Sex: Male Functional Status Question Answer Note LastModified by Organizat ion Details LastModified Time Do you use any illicit or recreational drugs? No [email or web address] Information not available 11/02/2020 What is your level of alcohol consumption? Moderate 0-10 drinks/ week [email or web address] Information not available 11/02/2020 Do you or have you ever used smokeless tobacco? Never used smokeless tobacco 06/04/20 tory Information not available 06/03/2020 Are you currently employed? 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 Never used electronic cigarettes 06/04/20 tory Information not available 06/03/2020 What is your exercise level? Moderate daily [email or web address] Information not available 11/16/2022 Mental Status None recorded. Family History Nothing Reported Notes:Ischemic: Maternal gra ndmother who had an CO. Hypertension: Maternal grandmother and father. Diabetes: Paternal grandmother. Cancer: Maternal grandfather lung, mother and father also said to have lung cancer. Colon Polyps: MOM FATHER'S GENETIC BACKGROUND [place] Medical History No medical history recorded. Immunizations Vaccine Type Date Status Note Provider Nam e and Address Organization Details Recorded Time pneumococcal polysaccharide PPV23 1 completed Not Available [facility] 04/04/2019 02:14:31 Pneumococcal conjugate PCV 13 6 completed Not Available [facility] 04/04/2019 02:36:28 Tdap 0 completed Not Available [facility] 04/04/2019 02:28:15 Td (adult), 2 Lf tetanus toxoid, preservative free, adsorbed 1 completed Nuris Barraza CMA null, [facility] 11/02/2020 08:54:28 pneumococcal polysaccharide PPV23 2 completed Gifty Rodriguez MD [address] [place] [address], [id number], [facility] 11/06/2021 15:03:09 COVID-19, mRNA, LNP-S, PF, 30 mcg/0.3 mL dose 1 completed Cindy Adkins RMA null, [facility] 06/15/2020 17:31:31 COVID-19, mRNA, LNP-S, PF, 100 mcg/0.5mL dose or 50 mcg/0.25mL dose 1 completed Madonna Carvajal LPN null, [facility] 06/17/2020 14:55:03 COVID-19, mRNA, LNP-S, PF, 100 mcg/0.5mL dose or 50 mcg/0.25mL dose 1 completed Nuris Barraza CMA null, [facility] 08/07/2021 09:17:22 COVID-19, mRNA, LNP-S, PF, 100 mcg/0.5mL dose or 50 mcg/0.25mL dose 2 completed Nuris Barraza CMA null, [facility] 08/07/2021 09:17:41 zoster recombinant 2 completed Nuris Barraza CMA null, [facility] 06/29/2024 08:23:49 zoster recombinant 2 completed Nuris Barraza CMA null, [facility] 06/29/2024 08:24:05 Past Encounters Encounter ID Performer Location Encounter Start Date Encounter Closed Date Diagnosis/Indication Diagnosis SNOMED-CT Code Diagnosis ICD10 Code Diagnosis Note [id number] MD TANO Avila, [facility] [place] [address] [place] [address] 07/16/2000 08:15:00 04/07/2008 02:02:29 [id number] MD TANO Avila, [facility], OFFICE [address] [place] [address] 1 09/02/2000 15:30:00 04/07/2008 02:02:29 [id number] Luh Pham, PT Physical Therapy, [address] [place] [address] 09/17/2000 08:00:00 04/07/2008 02:02:29 [id number] Luh Pham, PT Physical Therapy, [address] [place] [address] 1 09/23/2000 13:00:00 04/07/2008 02:02:29 [id number] Luh Pham, PT Physical Therapy, [facility] [address] [place] [address] 09/25/2000 10:00:00 04/07/2008 02:02:29 [id number] Zack Villegas MD , [facility] OFFICE [address] [place] [address] 1 02/20/2001 08:00:00 04/07/2008 02:02:29 [id number] Zack Villegas MD , [facility] OFFICE [address] [place] [address] 1 12/08/2001 08:21:35 04/07/2008 02:02:29 [id number] [facility] - [address] [place] [address] 01/28/2002 10:16:31 04/07/2008 02:02:29 [id number] [facility] - [facility] [address] [place] [address] 1 07/24/2002 07:59:46 04/07/2008 02:02:29 [id number] Zack Villegas MD , [facility], OFFICE [address] [place] [address] 1 07/31/2002 11:58:11 04/07/2008 02:02:29 [id number] Zack Villegas MD , [facility] OFFICE [address] [place] [address] 1 09/04/2002 08:12:04 04/07/2008 02:02:29 [id number] [facility] - [facility] [address] [facility] [place] [address] 09/04/2002 08:22:23 04/07/2008 02:02:29 [id number] Zack Villegas MD , [facility], OFFICE [address] [place] [address] 1 12/11/2002 08:26:27 12/14/2002 09:24:04 [id number] [facility] - [address] [place] [address] 1 12/28/2002 09:17:48 12/28/2002 14:16:40 [id number] [facility] - [facility] [address] [place] [address] 1 01/01/2003 07:43:20 01/01/2003 11:14:59 [id number] MD TANO Avila, [facility], OFFICE [address] [place] [address] 1 01/21/2003 13:13:01 01/21/2003 18:03:57 [id number] Zack Villegas MD , [facility], OFFICE [address] [place] [address] 1 12/20/2003 09:24:38 12/21/2003 08:35:34 [id number] [facility] - [address] [place] [address] 12/20/2003 10:12:47 12/20/2003 10:13:09 [id number] Zack Villegas MD , [facility], OFFICE [address] [place] [address] 1 03/13/2005 08:23:42 03/14/2005 08:03:42 [id number] [facility] - [address] [place] [address] 03/22/2005 07:55:33 03/22/2005 07:55:59 [id number] [facility], LIZETH LAU MD [facility], [address] [place] [address] 05/03/2005 08:11:48 04/07/2008 02:02:29 [id number] [facility] - [address] [place] [address] 09/21/2005 06:51:18 09/21/2005 07:45:26 [id number] [facility] - [address] [place] [address] 1 10/26/2005 08:04:11 10/26/2005 08:04:26 [id number] Zack Villegas MD , [facility] OFFICE [address] [place] [address] 1 05/24/2006 15:22:07 05/27/2006 08:24:30 [id number] [facility] - [address] [place] [address] 06/26/2006 07:47:48 06/26/2006 07:47:58 [id number] Zack Villegas MD , [facility] OFFICE [address] [place] [address] 1 12/02/2006 08:10:58 12/03/2006 08:08:09 [id number] [facility] - [address] [place] [address] 12/04/2006 07:49:33 12/04/2006 07:49:41 [id number] Zack Villegas MD , [facility], OFFICE [address] [place] [address] 1 05/26/2007 11:18:02 04/07/2008 02:02:29 [id number] [facility] - [facility] [address] 1 06/18/2007 07:31:53 06/18/2007 07:31:57 [id number] Zack Villegas MD , [facility], OFFICE [address] [place] [address] 1 07/21/2007 08:01:37 04/07/2008 02:02:29 [id number] [facility] - [facility] [address] 1 12/25/2007 07:26:07 12/25/2007 07:26:15 [id number] Zack Villegas MD , [facility], OFFICE [address] [place] [address] 1 08/05/2008 08:45:04 08/06/2008 12:25:09 [id number] [facility] RADIOLOGY [facility]iology , [address] [place] [address] 1 08/05/2008 09:56:26 08/11/2008 14:39:11 [id number] Minnie Wray, OT Physical Therapy, [address] [place] [address] 08/10/2008 08:28:54 08/11/2008 10:21:31 [id number] Minnie Wray, OT Physical Therapy, [address] [place] [address] 1 08/18/2008 08:40:51 08/18/2008 16:25:07 [id number] Minnie Wray, OT Physical Therapy, [address] [place] [address] 1 08/26/2008 08:02:32 08/26/2008 12:03:39 [id number] Minnie Wray, OT Physical Therapy, [address] [place] [address] 1 08/31/2008 07:59:32 2008 09:24:19 [id number] Minnie Wray, OT Physical Therapy, [address] [place] [address] 1 09/07/2008 08:03:02 09/08/2008 08:31:18 [id number] Minnie Wray, OT Physical Therapy, [address] [place] [address] 1 09/13/2008 15:00:04 09/14/2008 11:45:17 [id number] Minnie Wray, OT Physical Therapy, [address] [place] [address] 1 09/23/2008 09:01:49 09/23/2008 16:54:28 [id number] Zack Villegas MD , [facility], OFFICE [address] [place] [address] [place] [address] 1 12/21/2008 08:11:21 12/21/2008 12:07:18 [id number] Zack Villegas MD , [facility], [address] [place] [address] 1 01/05/2009 09:10:08 01/05/2009 15:27:01 [id number] [facility] - [address] [place] [address] 1 06/22/2008 07:49:56 06/22/2008 07:49:59 [id number] [facility] - [address] [place] [address] 1 08/18/2008 08:37:10 08/18/2008 08:37:18 [id number] MD TANO Avila, [address] [place] [address] 1 02/14/2009 07:55:07 02/14/2009 14:12:42 [id number] MD TANO Avila, [facility], [address] [place] [address] 1 08/10/2009 08:26:13 08/10/2009 10:42:17 [id number] MD TANO Avila, [facility], OFFICE [address] [place] [address] [place] [address] 1 09/09/2009 08:06:11 09/09/2009 09:26:51 [id number] Royal Juan DPM Podiatry, [address] [place] [address] 1 09/09/2009 08:49:24 09/09/2009 09:51:02 [id number] Royal Juan DPM Podiatry, [address] [place] [address] 1 10/03/2009 15:24:55 10/04/2009 14:21:38 [id number] Royal Juan DPM Podiatry, [address] [place] [address] 1 11/07/2009 15:27:54 11/16/2009 15:37:16 [id number] Royal Juan DPM Podiatry, [address] [place] [address] 1 11/28/2009 15:11:38 12/06/2009 15:29:08 [id number] MD TANO Avila, [facility] OFFICE [address] [place] [address] [place] [address] 1 12/22/2009 07:59:55 12/22/2009 12:18:32 [id number] Roayl Juan DPM Podiatry, [address] [place] [address] 1 01/23/2010 15:24:34 02/01/2010 08:44:29 [id number] MD TANO Avila, [facility], OFFICE [address] [place] [address] [place] [address] 1 10/05/2010 08:55:53 10/05/2010 15:50:37 [id number] [facility] RAD[facility]OLOGY Technologi st Radiology , [address] [place] [address] 1 10/06/2010 15:51:51 10/10/2010 14:02:33 [id number] MD TANO Avila, [facility], OFFICE [address] [place] [address] [place] [address] 10/27/2010 08:08:13 10/27/2010 10:29:06 [id number] Zack Villegas MD , [facility], OFFICE [address] [place] [address] [place] [address] 1 07/30/2011 10:47:05 07/30/2011 11:34:30 [id number] MD TANO Avila, [facility] OFFICE [address] [place] [address] [place] [address] 1 11/22/2011 10:57:31 11/22/2011 11:43:10 [id number] MD TANO Avila, [facility] OFFICE [address] [place] [address] [place] [address] 1 09/09/2012 09:13:53 09/09/2012 09:33:48 [id number] Zack Villegas MD , [facility], OFFICE [address] [place] [address] 1 11/03/2013 08:25:08 11/04/2013 08:19:12 Benign essential hypertension 9531718 Blood pressure at goal Blood pressure NOT at goal. Adult [facility] th examination [id number] see Risk Assessment and Lifestyle Change Counseling section above Counseling [id number] Prostate s pecific antigen above reference range 653540444 [id number] Zack Villegas MD , [facility], OFFICE [address] [place] [address] 1 11/04/2014 09:19:47 11/04/2014 11:01:58 Adult health examination [id number] see Risk Assessment and Lifestyle Change Counseling section above Counseling [id number] Benign ess ential hypertension 1047241 Blood pressure at goal Tobacco user [id number] Zack Villegas MD , [facility], OFFICE [address] [place] [address] 1 08/08/2015 08:10:22 08/09/2015 10:07:55 Benign essential hypertension 6418754 I10 Blood pressure at goal [id number] Blaise Hidalgo PA-C , [facility], OFFICE [address] [place] [address] 1 09/06/2015 07:48:26 09/06/2015 11:26:01 Lyme disease 55699350 A69.20 With rash and these sx, will treat empiricall y. [id number] Nader Blair MD [facility], [facility] [address] [place] [address] 1 09/23/2015 07:30:00 09/23/2015 13:32:30 [id number] Zack Villegas MD , [facility], OFFICE [address] [place] [address] 1 11/28/2015 11:27:36 11/28/2015 12:45:48 Adult health examination 172265083 Z00.00 see Risk Assessment and Lifestyle Change Counseling section above Counseling 302148388 Z71 .9 Benign ess ential hypertension 0042027 I10 Blood pressure at goal Blood pressure Active or passive immunization 755008383 Z23 [id number] Zack Villegas MD , [facility], OFFICE [address] [place] [address] 1 07/09/2016 08:11:50 07/09/2016 08:43:15 Benign essential hypertension 5010765 I10 Blood pressure at goal [id number] Zack Villegas MD , [facility] OFFICE [address] [place] [address] 1 11/30/2016 08:36:04 11/30/2016 09:22:06 Benign essential hypertension 1089466 I10 Blood pressure at goal Adult heal th examination 061123140 Z00.00 see Risk Assessment and Lifestyle Change Counseling section above Counseling 240318460 Z71 .9 [id number] Zack Villegas MD , [facility], OFFICE [address] [place] [address] 1 07/11/2017 08:10:10 07/11/2017 12:23:36 Benign essential hypertension 0567021 I10 Blood pressure at goal Blood pressure NOT at goal. [id number] Zack Villegas MD , [facility] OFFICE [address] [place] [address] 1 12/20/2017 09:30:14 12/20/2017 10:32:43 Adult health examination 404740793 Z00.00 see Risk Assessment and Lifestyle Change Counseling section above Counseling 592666369 Z71 .9 Depression screening 171 781940 Z13.89 depression screening tool administer ed, entered into emr, scored and discussed, time greater than 7.5 minutes Benign ess ential hypertension 8065249 I10 Blood pressure at goal [id number] Zack Villegas MD , [facility], OFFICE [address] [place] [address] 1 07/11/2018 09:06:14 07/11/2018 12:17:36 Benign essential hypertension 8748225 I10 Blood pressure at goal [id number] Gifty Rodriguez MD , [facility], OFFICE [address] [place] [address] 1 10/27/2019 09:23:37 10/29/2019 08:51:37 Essential hypertension 86291421 I10 at goal hctz 25, lisinopril 40 both for many years Screening for malignant neoplasm of prostate 816820187 Z12.5 psa stable at 3+ wit D rChadbourn e, last 2015option s discusseda greed to test once moreadded for fall 2019 Screening for malignant neoplasm of colon 355362529 Z12.11 HP 2011clear 2016good until 2025 per guidelines [id number] Gifty Rodriguez MD , [facility], OFFICE [address] [place] [address] 05/04/2020 08:18:32 05/06/2020 17:01:05 Essential hypertension 78783585 I10 05/04/2020 has been running 140/89 recent weeks amlodipine added at 2.5 asked to portal in BP's in 2 weeks * at goal hctz 25, lisinopril 40 both for many years Screening for malignant neoplasm of prostate 805802384 Z12.5 psa stable at 3+ wit D r[place]adbourn e, last 2014 had neg Bx at PSA 3 options discussed agreed to test once more added for fall 2019 Screening for malignant neoplasm of colon 550022576 Z12.11 HP 2011clear 2016good until 2025 per guidelines [id number] Blanca Turner . , [facility], OFFICE [address] [place] [address] 1 06/03/2020 15:01:03 06/06/2020 19:00:00 Pain in left foot 8254555739 03232 M79.672 Rule out fracture Rest, ice, elevation. Tylenol as needed for pain Follow up if no improvemen t [id number] Gifty Rodriguez MD , [facility], OFFICE [address] [place] [address] 11/02/2020 08:26:52 11/02/2020 09:28:18 Adult health examination 066339511 Z00.00 well exam Counseling 638513913 Z71 .9 including cardiovasc ular risk reduction counseling Depression screening 171 755462 Z13.31 depression screening tool administer ed, entered into emr, scored and discussed, time greater than 7.5 minutes Screening for alcohol abuse 736352941 Z13.39 Essential hypertension 87848074 I10 10/2020 124/66 at goal glad that is the caseunclea r why was elevated latewinter early spring1contin ue lisinopril 40, HCTZ 25 tabs* [address] [place] on amlodipine at 2 doses, had no effect on on DBP (RV noted in a Case) would need BB) and only effect was to cause edema 05/04/2020 has been running 140/89 recent weeks amlodipine added at 2.5 asked to portal in BP's in 2 weeks * at goal hctz 25, lisinopril 40 both for many years Active or passive immunization 529749580 Z23 Screening for malignant neoplasm of prostate 770820126 Z12.5 PSA 4.66 10/26/2020 which is dowen from an erratic peak of 6 (04/29/2020 ) psa stable at 3+ with Dr Solitario (who has since left for [place]), last 2014 had neg Bx at PSA 3 options discussed agreed to test once more added for fall 2019 Screening for malignant neoplasm of colon 421850131 Z12.11 HP 2010clear 2016good until 2025 per guidelines [id number] Gifty Rodriguez MD , [facility], OFFICE [address] [place] [address] 08/07/2021 09:10:49 08/07/2021 09:46:25 Pre-surgery evaluation 258350801 Z01.818 no contraindi cations to cataract surgery with Juans6 /2 and 08/31/2021 Benign ess ential hypertension 9776234 I10 Bp runs 129/89 AT HOMEcontin ue dual meds Prostate s pecific antigen above reference range 097460416 R97.20 stable at4-5 [id number] Gifty Rodriguez MD , [facility], OFFICE [address] [place] [address] 11/06/2021 14:15:34 11/06/2021 15:13:05 Active or passive immunization 360764765 Z23 Benign ess ential hypertension 7629642 I10 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 )136/82 Bp runs 129/89 AT HOMEcontin ue dual meds Prostate s pecific antigen above reference range 294686604 R97.20 stable at4-5 Screening for malignant neoplasm of colon 603815021 Z12.11 HP 2010clear 2016good until 2025 per guidelines [id number] Gifty Rodriguez MD , [facility], OFFICE [address] [place] [address] 07/11/2022 07:52:25 07/11/2022 09:10:40 Essential hypertension 25742221 I10 Bp at goal on hctz 25, lisinopril usual care* 10/2020 124/66 at goal glad that is the caseunclea r why was elevated latewinter early springontin ue lisinopril 40, HCTZ 25 tabs* [address] [place] on amlodipine at 2 doses, had no effect on on DBP (RV noted in a Case) would need BB) and only effect was to cause edema 05/04/2020 has been running 140/89 recent weeks amlodipine added at 2.5 asked to portal in BP's in 2 weeks * at goal hctz 25, lisinopril 40 both for many years [id number] Gifty Rodriguez MD , [facility], OFFICE [address] [place] [address] 08/20/2022 08:55:40 08/20/2022 17:49:39 Transient cerebral ischemia 644059563 G45.9 right sided sense of numbness lasting [...] apprised of the situation and care plan [id number] Gifty Rodriguez MD , [facility], OFFICE [address] [place] [address] 11/16/2022 10:57:18 11/16/2022 12:00:52 Adult health examination 009722284 Z00.00 well exam Depression screening 171 000665 Z13.31 depression screening tool administer ed Screening for alcohol abuse 089490680 Z13.39 Alcohol use screening tool administer ed Essential hypertension 75358651 I10 Bp at goal on hctz 25, lisinopril 40usual care* 10/2020 124/66 at goal glad that is the caseunclea r why was elevated latewinter early spring1contin ue lisinopril 40, HCTZ 25 tabs* [address] [place] on amlodipine at 2 doses, had no effect on on DBP (RV noted in a Case) would need BB) and only effect was to cause edema 05/04/2020 has been running 140/89 recent weeks amlodipine added at 2.5 asked to portal in BP's in 2 weeks * at goal hctz 25, lisinopril 40 both for many years Benign ess ential hypertension 3507688 I10 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 )Home cuff correlates Bp runs 129/89 AT HOMEcontin ue dual meds Screening for malignant neoplasm of colon 321219619 Z12.11 colo scheduled- dec 2022*HP 2011clear 2016good until 2025 per guidelines Counseling 751737325 Z71 .9 including cardiovasc ular risk reduction counseling Screening for malignant neoplasm of prostate 557334560 Z12.5 stable at4-5 PSA 4.66 10/26/2020 which is dowen from an erratic peak of 6 (04/29/2020 ) psa stable at 3+ with Dr Solitario (who has since left for [place]), last 2014 had neg Bx at PSA 3 options discussed agreed to test once more added for fall 2019 Mixed hyperlipidemia 267 882787 E78.2 change from ator at 80 due to likely side effectssta bilized on rosuvasati n 40 mg tab - taking half a tablet Transient cerebral ischemia 579644013 G45.9 right sided sense of numbness lasting [...] mg tab - taking half a tablet [id number] Nader Blair MD Endoscopy , [facility] [address] [place] [address] 12/17/2022 07:04:49 12/17/2022 12:30:07 [id number] Gifty Rodriguez MD FP, [facility], OFFICE [address] [place] [address] 1 06/17/2023 11:59:03 06/17/2023 12:34:07 Acute orchitis 34435113 N45.2 unilateral pain less swellingap pears to be fluid, but doesnt transillum inatevaric osity ? but developed rapidly as a hydrocoele maythere is no descending mass from the inguinal canalwill ultrasound ddx discussedf /u as US suggests [id number] Gifty Rodriguez MD , [facility], OFFICE [address] [place] [address] 11/25/2023 08:22:06 11/25/2023 10:21:14 Adult health examination 852919512 Z00.00 well exam Depression screening 171 018407 Z13.31 depression screening tool administer ed Screening for alcohol abuse 273865833 Z13.39 Alcohol use screening tool administer ed Acute orchitis 01337875 N45.2 for aspiration *06/2023 unilateral pain less swellingap pears to be fluid, but doesnt transillum inatevaric osity ? but developed rapidly as a hydrocoele maythere is no descending mass from the inguinal canalwill ultrasound ddx discussedf /u as US suggests Essential hypertension 15761057 I10 Bp at goal on hctz 25, lisinopril 40usual care* 10/2020 124/66 at goal glad that is the caseunclea r why was elevated latewinter early spring1contin ue lisinopril 40, HCTZ 25 tabs* [address] [place] on amlodipine at 2 doses, had no effect on on DBP (RV noted in a Case) would need BB) and only effect was to cause edema 05/04/2020 has been running 140/89 recent weeks amlodipine added at 2.5 asked to portal in BP's in 2 weeks * at goal hctz 25, lisinopril 40 both for many years Benign ess ential hypertension 9510054 I10 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 )Home cuff correlates Bp runs 129/89 AT HOMEcontin ue dual meds Screening for malignant neoplasm of prostate 434877805 Z12.5 stable at4-5 4.71 age 73 PSA 4.66 10/26/2020 which is dowen from an erratic peak of 6 (04/29/2020 ) psa stable at 3+ with Dr Solitario (who has since left for [place]), last 2014 had neg Bx at PSA 3 options discussed agreed to test once more added for fall 2019 Screening for malignant neoplasm of colon 966986594 Z12.11 colo scheduled- dec 2022 one adenoma one HP, [place] per guidelines till 2032, Bang ok sooner*HP 2011clear 2016good until 2025 per guidelines Counseling 960593727 Z71 .9 including cardiovasc ular risk reduction counseling Mixed hyperlipidemia 267 137405 E78.2 stabilized on rosuvasati n 40 mg tab - taking half a tablet. 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 )Home cuff correlates Bp runs 129/89 AT HOMEcontin ue dual meds Prostate s pecific antigen above reference range 029474729 R97.20 stable [id number] neto Graffne later, Dr Lake ordered as backup for nov 2024 Mixed hyperlipidemia [id number] E78.2 06/2024I agreed that he may cut [...] Member ID Guarantor Name 08/20/2022 1 MEDICARE [place]: [facility] Bang Paiz [id number] Bang Paiz 08/20/2022 2 UNICARE - GIC (INDEMNITY) [id number] Bang Paiz [id number] Bang Paiz 11/16/2022 1 [place] [facility] Bang Paiz [id number] Bang Paiz 11/16/2022 2 UNICARE - GIC (INDEMNITY) [id number] Bang Paiz [id number] [place]iz 06/17/2023 1 [place]: [facility] Bang Paiz [id number] Bang Paiz 06/17/2023 2 UNICARE - GIC (INDEMNITY) [id number] Bang Paiz [id number] Bang Paiz 11/25/2023 1 [place] [facility] Bang Paiz [id number] [place] Paiz 11/25/2023 2 UNICARE - GIC (INDEMNITY) [id number] Bang Paiz [id number] Bang [place]iz 06/29/2024 1 [place]: [facility] Bang Paiz [id number] Bang Paiz 06/29/2024 2 [employer]ICARE - GIC (INDEMNITY) [id number] Bang Paiz [id number] [place]iz Notes Date Note Type Note [...] BRIAN,SOB, CP, FSC, PALPS Gifty Rodriguez MD [address] [place] [address], [phone], [facility] [place]22 11:56:35 [...] BRIAN,SOB, CP, FSC, PALPS Gifty Rodriguez MD [address] [place] [address], [phone], [facility] [place] 06/19/2023 10:40:11 [...] BRIAN,SOB, CP, FSC, PALPS Gifty Rodriguez MD [address] [place] [address], [phone], [facility] [place] 11/25/2023 09:24:54 [...] BRIAN,SOB, CP, FSC, PALPS Gifty Rodriguez MD [address] [place] [address], [phone], [facility] [place] 06/29/2024 08:48:42
== END 2024-08-14 10:24 | disposition home or self-care (01) ==
LOC: HO.HUSH 09:22
PROVIDERS: Visit Provider Urology
DX: N40.0 Benign prostatic hyperplasia without lower urinary tract symptoms (principal); R97.20 Elevated prostate specific antigen [PSA]
CPT/HCPCS: 99214

== ENCOUNTER → 2024-08-14 09:22 | Outpatient (BNVA) | payer MEDICARE, OTHER, SELFPAY | PROVIDERS: Visit Provider Urology | DX: N40.0 Benign prostatic hyperplasia without lower urinary tract symptoms (principal); R97.20 Elevated prostate specific antigen [PSA] | CPT/HCPCS: 99212 ==